=== PATIENT | male | born 1985 | race Caucasian/White ===

== ENCOUNTER 2023-08-26 11:55 | Emergency (ER) | payer OTHER, SELFPAY ==
[2023-08-26 12:02] VITALS: BP 152/106; PULSE 99; RESP 18; TEMP 36.8; O2SAT 97; BMI 40.6
--- NOTE | 2023-08-26 12:12 | CRLHL7_ITS ---
For Patients: As a result of the Cures Act, medical imaging exams and procedure reports are released immediately into your electronic medical record. You may view this report before your referring provider. If you have questions, please contact your health care provider. INDICATION: Left hand and forearm numbness. Now with facial numbness. TECHNIQUE: CT head without contrast. COMPARISON: None. FINDINGS: There is no mass effect or midline shift. No hydrocephalus. No CT evidence of acute hemorrhage or infarction. No abnormal extra-axial fluid collection. Bone windows show no acute calvarial fracture. Paranasal sinuses and orbits as imaged are unremarkable. Rightward deviation of the anterior nasal septum. IMPRESSION: No acute intracranial abnormality. Dictated by Marlon Sellers MD @ 08/26/2023 12:57:33 PM Please note that all CT scans at this facility use dose modulation, iterative reconstruction, and/or weight-based dosing when appropriate to reduce radiation dose to as low as reasonably achievable. Dictated by: Marlon Sellers MD @ 08/26/2023 12:57:41 (Electronically Signed)
--- NOTE | 2023-08-26 13:55 | ED_ITS ---
HPI - Neuro Symptoms/Deficit General Time Seen by Provider: 13:55 Date Seen: 08/26/23 Chief Complaint: Neuro Symptoms/Altered Deficit Stated Complaint: left side numbness Time Seen by Provider: 08/26/23 13:55 Source: patient Mode of arrival: ambulatory Limitations: no limitations History of Present Illness HPI Narrative: Giuseppe is a very pleasant 38-year-old gentleman who comes to the emergency room today with numbness of his left arm shoulders and left cheek. Giuseppe notes that he occasionally does wake up with numb numbness in both of his hands but he usually goes away after he gets up and moves around. Yesterday morning he noted however numbness in his left 4th and 5th fingers extending on to both the dorsum and palmar aspect of his hand and into the medial aspect of his forearm. He expected it to go away but it did not. Today he has had this continuing along with numbness in his upper shoulders and onto his left cheek. He denies any visual changes, chest pain, fever or chills. He notes no recent trauma any denies any neck pain. He has not had any heart palpitations or history of atrial fibrillation. He does smoke cigars but is otherwise healthy individual. He does go through the [place] for medical treatment and he is an [employer] . Patient has not noticed any unusual symptoms such as bowel or bladder changes or weakness in his lower extremities. He denies any past history of neck injury. He has not had a history of stroke. Related Data Home Medications ?Medication ?Instructions ?Recorded ?Confirmed hydrochlorothiazide 25 mg tablet 25 mg PO DAILY 08/26/23 08/26/23 losartan 50 mg tablet 50 mg PO DAILY 08/26/23 08/26/23 omeprazole 20 mg capsule,delayed 20 mg PO DAILY 08/26/23 08/26/23 release sumatriptan succinate 100 mg tablet 100 mg PO DIRECTED 08/26/23 08/26/23 Allergies Allergy/AdvReac Type Severity Reaction Status Date / Time No Known Drug Allergies Allergy Verified 02/28/22 18:21 Review of Systems Status of ROS: Reports: 10 or more systems reviewed and unremarkable except as noted in History and below Const: Denies: fever or chills Eyes: Denies: change in vision or blurry vision ENMT: Denies: neck pain, throat swelling or nasal congestion Cardio: Denies: chest pain or shortness of breath with exertion Resp: Denies: shortness of breath GI: Denies: abdominal pain, nausea or vomiting : Denies: painful urination Musculo: Denies: back pain or neck pain Neuro: Denies: headache Allergy/Immuno: Denies: throat swelling PFSH [facility] Social History Smoking Status: Never smoker How often do you have a drink containing alcohol: 2-4 times a month AUDIT-C Alcohol total score: 2 Non-prescribed substance use: denies use service: No Exam Narrative: Exam Narrative: Alert and oriented. No acute distress. Very pleasant well-spoken gentleman. EOM is full and pupils are equal round reactive. Eyebrow raise smile all intact. Sensation of face all intact and symmetrical. Neck is supple. No cervical tenderness with palpation down cervical spine. Range of motion is full. Spurling sign negative bilaterally. Upper baer shoulder strength intact. Upper extremity strength entirely intact. Sensation deficit noted on the patient's left 4th and 5th fingers. On the dorsum of the hand he has altered sensation to the 3rd metacarpal and on the Banks surface to the 4th metacarpal. However his strength and motor on upper extremities entirely intact he is walking normally his lower extremity DTRs are 1+ and there is no evidence of hyper reflexia. Abduction of hands bilaterally strong 5/5. Palpation over the ulnar nerve at the elbow does not increase patient's symptoms. Const: Vital Signs, click to edit/add: Vital Signs - 24 hr 08/26/23 12:02 Temperature 98.2 F Pulse Rate [Right Pulse Oximeter] 99 Respiratory Rate 18 Blood Pressure [Ri ght Upper Arm] 152/106 H Pulse Oximetry 97 Oxygen Delivery Me thod Room Air Documenting provider has reviewed patient's vital signs: yes Course Course ED Course: At this time differential diagnosis includes but is not limited to ulna are neuropathy, cervical radiculitis, CVA, anxiety, musculoskeletal spasm. Head CT has been done at this time. I would like to speak to Neurology as patient has symptoms of what I think is predominantly on ulna are neuropathy or neuritis and yet I cannot explain the shoulder her numbness or facial numbness. Facial numbness has largely resolved at this time. Symptoms are greater than 24 hours. I will be speaking to Neurology to see if there is any utility in his CTA or if MRI would be the better course of action. His blood pressure is elevated and we will need to recheck that. Unfortunately we have no beds in the ER and therefore we have found him a cot in the hallway. He is been very patient with us. Reevaluation(s) Reevaluation #1: Patient would like to wait in the waiting room as there is a line for MRI. He continues to be stable at this time. Consultations Consultation #1: Had pleasure of speaking with neurologist Dr. Renteria. Agrees that an MRI of the brain would be appropriate in this situation and also suggest adding cervical spine MRI which I have done. Patient is informed of this. Vital Signs Vital signs: Initial Vital Signs Temperature 98.2 F 08/26/23 12:02 Temperature Source Temporal Artery Scan 08/26/23 12:02 Pulse Rate 99 08/26/23 12:02 Respiratory Rate 18 08/26/23 12:02 Blood Pressure 152/106 H 08/26/23 12:02 Blood Pressure Mean 121 H 08/26/23 12:02 Blood Pressure Position Sitting 08/26/23 12:02 Pulse Oximetry 97 08/26/23 12:02 Oxygen Delivery Method Room Air 08/26/23 12:02 Vital Signs Temperature 98.2 F 08/26/23 12:02 Pulse Rate 99 08/26/23 12:02 Respiratory Rate 18 08/26/23 12:02 Blood Pressure 152/106 H 08/26/23 12:02 Pulse Oximetry 97 08/26/23 12:02 Oxygen Delivery Method Room Air 08/26/23 12:02 Temperature 98.2 F 08/26/23 12:02 Pulse Rate 99 08/26/23 12:02 Respiratory Rate 18 08/26/23 12:02 Blood Pressure 152/106 H 08/26/23 12:02 Pulse Oximetry 97 08/26/23 12:02 Oxygen Delivery Method Room Air 08/26/23 12:02 MDM - Neuro Symptoms/Deficit MDM Narrative Medical decision making narrative: 1. Subjective neurological complaints-at this time patient notes onset of left 4th and 5th finger numbness extending onto the hand and onto the forearm medial surface. Today he had this continue along with numbness in the upper shoulders as well as left cheek. Note onset of finger numbness yesterday morning so we are dealing with symptoms that have been occurring for greater than 24 hours. Facial symptoms are now resolved here in the emergency room. He I have spoken to Dr. Renteria Neurology in regards to this patient. Initially my opinion was this was likely an ulnar are radiculitis however, I cannot explain the bilateral shoulder and left facial numbness. Therefore I must consider stroke in the differential diagnosis. Patient had heart sounds with regular rate and rhythm. EKG pending but patient elected to leave AMA. Patient did have negative head CT. Neurologist then suggest MRI of the brain and cervical spine. Patient initially in agreement and was waiting in the waiting room. However, there was has significant stick census in the ER and the MRI was scheduled for 1900 hours and he elected not to wait. He did sign AMA. My advice to him was to take baby aspirin 81 mg daily and to follow up with his primary MD for further evaluation as well as blood pressure checks. Of course he should return to the ER if worsening symptoms occur. 2. Elevated blood pressure-patient has no chest pain visual changes headache or confusion. Initial plan was to let him sit and recheck blood pressure. However, he elects to leave AMA prior to his MRIs. 2. Disposition-as above. Patient signed AMA as he did not want to wait for MRI which was scheduled this evening. Medical Records Attestation: I reviewed the patient's medical records. Imaging Data CT scan - head: Attestation: I have reviewed the pertinent imaging results. Radiologist's impression: There is no mass effect or midline shift. No hydrocephalus. No CT evidence of acute hemorrhage or infarction. No abnormal extra-axial fluid collection. Bone windows show no acute calvarial fracture. Paranasal sinuses and orbits as imaged are unremarkable. Rightward deviation of the anterior nasal septum. IMPRESSION: No acute intracranial abnormality. Discharge Plan Discharge Patient Disposition: Left Against Medical Advice Prescriptions: No Action losartan 50 mg tablet 50 mg PO DAILY sumatriptan succinate 100 mg tablet 100 mg PO DIRECTED omeprazole 20 mg capsule,delayed release(DR/EC) 20 mg PO DAILY hydrochlorothiazide 25 mg tablet 25 mg PO DAILY Follow Up/Referrals: Venecia García MD [Staff Physician] - Stand Alone Forms: [employer] Info Instructions
--- OUTSIDE RECORDS SUMMARY | 2023-08-26 14:24 | XMS_ITS | Encounter Summary ---
Author Name Department [facility] Organization [facility] Address [address] [place] [address] Care Team Providers Care Credit Rating Checker Name Role Phone LIS GUERRA Primary Care Provider Unavailabl e Insurance Providers: All historical and current Section Date Range: From patient's date of to the date document was created. This section includes the names of all active insurance providers for the patient. Insurance Provider Type of Coverage Plan Name Start of Policy Coverage End of Policy Coverage Group Number Member ID Insurance Provider's Telephone Number Policy Hodges's Name Patient's Relationship to Policy Hodges [employer] PLAN W/HEALTH REIMBURSE MENT ARRANGEME NT Empow er HSA Natio nal Mar 04, 2014 [id number] FAVOURITE ,CHARITY PATIENT MED[employer] ([id number] [employer]) PRESCRIPT ION MEDIC A RX Mar 04, 2022 1MEDICA [id number] [phone] FAVOURITE ,CHARITY PATIENT [employer] ([employer]) PRESCRIPT ION MEDIC A RX Mar 04, 2021 1MEDICA [id number] FAVOURITE ,CHARITY PATIENT MEDICA POINT OF SERVICE [place] [facility] Mar 04, 2021 [id number] FAVOURITE ,CHARITY PATIENT MEDICA [facility] [facility] Mar 04, 2021 [id number] FAVOURITE ,CHARITY PATIENT [facility]ICA[facility] PREFERRED PROVIDER ORGANIZAT ION (PPO) [place] [facility] F Mar 04, 2022 [id number] [phone] FAVOURITE ,CHARITY PATIENT MEDIMPACT RX PRESCRIPT ION HP RX HSA Mar 04, 2014 [id number] CHARITY JUAREZ PATIENT Selected Encounter This section includes the information on record at [facility] for the Encounter. Date/Time Encounter Type Encounter Description Reason Pro vider Source May 21, 2023 02:42 PM Outpatient Encounter WE[facility]! PROG - IND IHE Encounter Template Text not used by [facility] Plan of Treatment: Future Appointments (+ 6 months) and Future Tests (+/- 45 days) The Plan of Treatment section includes future care activities for the patient from all [facility] treatmentfacilities. This section includes future appointments and future orders which are active, pending or scheduled. Future Appointments This section includes appointments that were scheduled to occur 6 months from the date of the Encounter, up to a maximum of 20 appointments. The data comes from all [facility] treatment facilities. Appointment Date/Time Appointment Type Appointme nt Facility Name Aug 14, 2023 03:00 PM AMBULATORY - MEDICINE [facility] Social History: Smoking Status (Most current) and Tobacco Use (All prior to encounter date) This section includes the most current, and the historical, smoking and tobacco- related health factors from the [facility] facility where the Encounter took place. Current Smoking Status This section includes the most current smoking, or tobacco-related health factor, from the [facility] facility where the Encounter took place. Date/Time Current Smoking Status Comment Yossi reid Feb 01, 2012 09:57 AM CURRENT TOBACCO USER [facility] Tobacco Use History This section includes a history of the smoking, or tobacco-related health factors, that were collected on or before the date of the Encounter. The data comes from the [facility] facility where the Encounter took place. Date/Time Smoking Status/Tobacco Use Comment Virgil palmer Dec 29, 2010 01:07 PM CURRENT TOBACCO USER [facility] Encounter Notes: All associated encounter notes This section contains the clinical notes associated to the Encounter. Date/Time Encounter Note(s) Provider Source May 21, 2023 02:42 PM REPORT OF CONTACT: LOCAL TITLE: APPOINTMENT SCHEDULING NOTE STANDARD TITLE: REPORT OF CONTACT DATE OF NOTE: MAY 21, 2023@14:42 ENTRY DATE: MAY 21, 2023@14:43:03 AUTHOR: MARLON BYRD COSIGNER: URGENCY: STATUS: COMPLETED C1-First call to [facility] (unsuccessful scheduling): Left Voicemail L1-Unable to schedule letter sent by mail to [facility]. Activity: 12/05/2022 13:46 New Order entered by MONICA CROWLEY (NURSE PRACTITCASSI) Order Text: Return to [facility] 2 79 on or around ( Apr 10, 2023 ) for a total of 1 appointment(s) Nature of Order: ELECTRONICALLY ENTERED Elec Signature: MONICA CROWLEY (NURSE PRACTITCASSI) on 12/05/2022 13:47 Place in [facility] [place] on 07/15/23 /todd/ MARLON BYRD Advanced Manager Corporate Communications Signed: 05/21/2023 14:43 MARLON BYRD [facility]
--- OUTSIDE RECORDS SUMMARY | 2023-08-26 14:24 | XMS_ITS | Continuity of Care Document ---
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 It does not include entries that were removed or entered in error. Problem Status Onset Date Problem Type Date of Resolution Comments Source Exposure to potentially hazardous substance ([facility] [id number]) Active 05/10/19 24 Condition May 10, 2023 Entered By: CISCO TRINH [facility]: [facility] Documentation Initiative [facility] Obstructive sleep apnea syndrome Active 03/04/19 10 Condition Jan 18, 2022 Entered By: LIS GUERRA Comment: plans to restart use CPAP [facility] corneal scar left eye Active Condition [facility] sleep disorders organic Active Condition DoD visit for: services physical separation Active Condition DoD tobacco use Active Condition DoD insomnia Active Condition DoD sinusitis Active Condition DoD pharyngitis Active Condition [facility] Orthopedic Aftercare For Healing Fracture Inactive Condition DoD fracture metacarpal bone(s) Active Condition DoD closed fracture metacarpal bone(s) right Active Condition [facility] visit for: routine eye exam Active Condition DoD astigmatism regular Active Condition DoD refractive error - hypermetropia Active Condition [facility] Patient Education Dietary Active Condition DoD congenital foot deformity - pes cavus Active Condition [facility] disorder of tonsil tonsillitis Active Condition DoD foot pain (soft tissue) Active Condition DoD callus Active Condition DoD corns Active Condition DoD visit for: ears / hearing exam Active Condition DoD visit for: services physical Active Condition DoD routine examination Inactive Condition [facility] Patient Education - Self-Examination Active Condition [facility] Preventive Medicine New Patient Evaluation Adult 18-39 Years Inactive Condition DoD Adult attention deficit hyperactivity disorder (SNOMED CT 285730458) Active Condition May 12, 2014 Entered By: MARLON ERNST Comment: on med in HS and college only [facility] Alcohol intake above recommended sensible limits Active Condition [facility] Allergic rhinitis Active Condition [facility] Body mass index 40+ - severely obese Active Condition May 12, 2014 Entered By: MARLON ERNST Comment: max 365# in 2013 [facility] Chronic diarrhea Active Condition [facility] Chronic post-traumatic stress disorder Active Condition [facility] collar bone fracture Active Condition Jan 10, 2010 Entered By: CHARITY MOCK Comment: [facility] Essential hypertension Active Condition Oct 10, 2021 Entered By: LIS GUERRA Comment: NEEDS VISIT BEFORE LOSARTAN REFILL [facility] Family social history Active Condition Jan 10, 2023 Entered By: LIS GUERRA Comment: Alcohol 1-2 beers once or twice a week in summer more on weekends. 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 [facility] ZairgeJan 18, 2022 Entered By: LIS GUERRA Comment: [employer]/[place] [place] 18, 2022 Entered By: LIS GUERRA Comment: Quit tobacco 2016 after smoking from age 14, 1 pack lasted 2 Weeks, NOW SMOKES OCCASIONAL CIGARSJan 18, 2022 Entered By: LIS GUERRA Comment: Mom(retired [place] steve commisioner) has had HTN, Dad in MVA when was youngNov 2021 Entered By: LIS GUERRA Comment: Sister is healthy(bank)No v 2022 Entered By: LIS GUERRA Comment: 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 Entered By: LIS GUERRA Comment: V[facility] in [facility]ase[facility] fracture forearm Active Condition Jan 10, 2010 Entered By: CHARITY MOCK Comment: left [facility] Fracture of metacarpal bone Active Condition Jun 05, 2014 Entered By: MARLON ERNST Comment: R Boxer's fracture 2008 [facility] GERD - Gastro-Esophageal Reflux Disease ([facility] [id number]) Active Condition Jun 22, 2022 Entered By: LIS GUERRA Comment: SCRIPT FOR OMEPRAZOLE RENEWED REQUESTED [facility] Headache Active Condition [facility] History of surgery Active Condition Jan 18, 2022 Entered By: LIS GUERRA Comment: s/p Tonsillectomy [facility] Hyperlipidemia (SCT [id number]) Active Condition [facility] Irritable bowel Active Condition [facility] metatarsal fracure Active Condition Jan 10, 2010 Entered By: CHARITY MOCK Comment: right # 5 digit [facility] OA - Osteoarthritis (SCT 831266863) Active Condition [facility] Other and unspecified Sleep Apnea Active Condition [facility] Diagnosis: ICD-10-CM Z68.41 Body mass index [BMI] 40.0-44.9, adult Active Diagnosis [facility] Diagnosis: ICD-10-CM E66.01 Morbid (severe) obesity due to excess calories Active Diagnosis [facility] Diagnosis: ICD-10-CM J10.1 Flu due to oth ident influenza virus w oth resp manifest Active Diagnosis [facility] Diagnosis: ICD-10-CM M54.50 Low back pain, unspecified Active Diagnosis [facility] Diagnosis: ICD-10-CM Z00.01 Encounter for general adult medical exam w abnormal findings Active Diagnosis [facility] Diagnosis: ICD-10-CM Z71.3 Dietary counseling and surveillance Active Diagnosis [facility] Diagnosis: ICD-10-CM E66.9 Obesity, unspecified Active Diagnosis [facility] Diagnosis: ICD-10-CM G43.809 Other migraine, not intractable, without status migrainosus Active Diagnosis [facility] Diagnosis: ICD-10-CM R51.9 Headache, unspecified Active Diagnosis [facility] Diagnosis: ICD-10-CM Z71.9 Counseling, unspecified Active Diagnosis [facility] Diagnosis: ICD-10-CM G89.29 Other chronic pain Active Diagnosis [facility] Medications Combined list of outpatient medications from Department of Defense and [facility] Affairs facilities.Medications provided include 1) outpatient medications from the last 15 months, and 2) patient-reported medications. Medication Details Route Status Patient Instructions Prescription Expires Prescription Number Last Dispense Date Ordering Provider Order Date Order Qty Source AMITRIPTYLI NE HCL 25MG TAB TAKE ONE TABLET BY MOUTH AT BEDTIME FOR PAIN AND MOOD ORAL DISCONT INUED 06/12/2023 [id number] BLANCA GUERRA 2022 30 [facility] Compounded Prilosec Capsule Conventiona l 20 mg Oral TAKE ONE CAPSULE BY MOUTH EVERY DAY FOR HEARTBUR N ON AN EMPTY STOMACH, AT LEAST 30 MINUTES PRIOR TO A MEAL FOR GERD Active 01/11/2024 [id number] 4 LIS GUERRA 2023 90 [facility] [facility] Compounded Prilosec Capsule Conventiona l 20 mg Oral TAKE ONE CAPSULE BY MOUTH EVERY DAY FOR HEARTBUR N ON AN EMPTY STOMACH, AT LEAST 30 MINUTES PRIOR TO A MEAL FOR GERD Active 01/11/2024 [id number] 3 LIS GUERRA 2022 90 [place] [facility] Compounded Prilosec Capsule Conventiona l 20 mg Oral TAKE ONE CAPSULE BY MOUTH EVERY DAY FOR HEARTBUR N ON AN EMPTY STOMACH, AT LEAST 30 MINUTES PRIOR TO A MEAL FOR GERD Discont inued 06/23/2023 [id number] 3 GUERRABLANCAHIPOLITO García 2022 90 [place] [facility] COZAAR (BRAND) 50 MG ORAL TAB TAKE ONE TABLET BY MOUTH EVERY DAY FOR BLOOD PRESSURE Active 01/11/2024 [id number] LIS GUERRA 2023 90 [place] [facility] COZAAR (BRAND) 50 MG ORAL TAB TAKE ONE TABLET BY MOUTH EVERY DAY FOR BLOOD PRESSURE Active 01/11/2024 [id number] 3 LIS GUERRA 2022 90 [place] [facility] COZAAR (BRAND) 50 MG ORAL TAB TAKE ONE TABLET BY MOUTH EVERY DAY FOR BLOOD PRESSURE Discont inued 01/19/2023 [id number] 3 LIS GUERRA Raquel 2022 90 [place] [facility] Hydrochloro thiazide (Oretic) Tablet 25 mg Oral TAKE ONE TABLET BY MOUTH EVERY MORNING FOR HIGH BLOOD PRESSURE Active 01/11/2024 [id number] 4 LIS GUERRA Raquel 2023 90 [place] [facility] Hydrochloro thiazide (Oretic) Tablet 25 mg Oral TAKE ONE TABLET BY MOUTH EVERY MORNING FOR HIGH BLOOD PRESSURE Discont inued 01/19/2023 [id number] 3 LIS GUERRA S 2022 90 Gracie don [facility] HYDROCHLORO THIAZIDE 25MG TAB TAKE ONE TABLET BY MOUTH EVERY MORNING FOR HIGH BLOOD PRESSURE ORAL ACTIVE 01/11/2024 [id number] 4 BLANCA GUERRA S 2022 90 [facility] HYDROCHLORO THIAZIDE 25MG TAB TAKE ONE TABLET BY MOUTH EVERY MORNING FOR HIGH BLOOD PRESSURE ORAL DISCONT INUED 01/19/2023 [id number] 3 BLANCA GUERRA S 2021 90 [facility] LOSARTAN 50MG TAB TAKE ONE TABLET BY MOUTH EVERY DAY FOR BLOOD PRESSURE ORAL ACTIVE 01/11/2024 [id number] 4 BLANCA GUERRA S 2022 90 [facility] LOSARTAN 50MG TAB TAKE ONE TABLET BY MOUTH EVERY DAY FOR BLOOD PRESSURE ORAL DISCONT INUED 01/19/2023 [id number] 3 BLANCA GUERRA S 2021 90 [facility] OMEPRAZOLE 20MG CAP,EC TAKE ONE CAPSULE BY MOUTH EVERY DAY FOR HEARTBUR N ON AN EMPTY STOMACH, AT LEAST 30 MINUTES PRIOR TO A MEAL FOR GERD ORAL ACTIVE 01/11/2024 [id number] 4 BLANCA GUERRA S 2022 90 [facility] OMEPRAZOLE 20MG CAP,EC TAKE ONE CAPSULE BY MOUTH EVERY DAY FOR HEARTBUR N ON AN EMPTY STOMACH, AT LEAST 30 MINUTES PRIOR TO A MEAL FOR GERD ORAL DISCONT INUED 06/23/2023 [id number] 3 BLANCA GUERRA S 2022 90 [facility] oseltamivir (U/D) 75 MG ORAL CAP TAKE ONE CAPSULE BY MOUTH TWICE A DAY FOR INFLUENZ A TAKE UNTIL ALL ARE GONE 04/21/2023 [id number] 4 KLARISSA DOMINGUEZ S 2023 10 Gracie [facility] OSELTAMIVIR PO4 75MG CAP TAKE ONE CAPSULE BY MOUTH TWICE A DAY FOR INFLUENZ A TAKE UNTIL ALL ARE GONE ORAL 04/21/2023 [id number] Echo DOMINGUEZ OI 2023 10 [place] [facility] Phentermine 15 MG / topiramate 92 MG Extended Release Capsule TAKE 1 CAPSULE BY MOUTH EVERY DAY FOR WEIGHT LOSS Active 08/29/2023 [id number] 4 MONICA SELBY 2023 30 [place] [facility] Phentermine 15 MG / topiramate 92 MG Extended Release Capsule TAKE 1 CAPSULE BY MOUTH EVERY DAY FOR WEIGHT LOSS Discont inued 02/08/2023 [id number] 3 MONICA SELBY 2022 30 [place] [facility] Phentermine 15 MG / topiramate 92 MG Extended Release Capsule TAKE 1 CAPSULE BY MOUTH EVERY DAY FOR WEIGHT LOSS 02/08/2023 [id number] 3 [facility]BY 20[facility] PHENTERMINE 15MG/TOPIRA MATE 92MG CAP,SA TAKE 1 CAPSULE BY MOUTH EVERY DAY FOR WEIGHT LOSS ORAL ACTIVE 08/29/2023 [id number] 4 MONICA CROWLEY 2022 30 [place] [facility]MG/TOPIRA MATE 92MG CAP,SA TAKE 1 CAPSULE BY MOUTH EVERY DAY FOR WEIGHT LOSS ORAL DISCONT INUED 02/08/2023 [id number] 3 MONICA CROWLEY 2022 30 [facility] PHENTERMINE 15MG/TOPIRA MATE 92MG CAP,SA TAKE 1 CAPSULE BY MOUTH EVERY DAY FOR WEIGHT LOSS ORAL DISCONT INUED 12/16/2022 [id number] 3 MONICA CROWLEY 2022 30 [place] [facility] POLYETHYLEN E GLYCOL 3350 PWDR,ORAL TAKE 17 GRAMS BY MOUTH EVERY DAY IRRITABL E BOWEL (MIX WITH 4 TO 6 OUNCES OF LIQUID AND DRINK) ORAL ACTIVE 01/11/2024 [id number] 3 BLANCA GUERRA 2022 510 [facility] SO-PEG 3350-BOWEL 2,TWO PART PREP--PO SO TAKE 17 GRAMS BY MOUTH EVERY DAY IRRITABL E BOWEL (MIX WITH 4 TO 6 OUNCES OF LIQUID AND DRINK) Active 01/11/2024 [id number] 3 LIS GUERRA S 2022 510 [facility] SUMAtriptan (U/D) 100 MG ORAL TAB TAKE ONE TABLET BY MOUTH ONCE NEEDED TO TREAT MIGRAINE - MAY REPEAT ONCE AFTER TWO HOURS. MAX 200 MG/24 HOURS. 08/10/2023 [id number] 4 JOSE EVANS 2023 27 [facility] SUMAtriptan (U/D) 100 MG ORAL TAB TAKE ONE TABLET BY MOUTH ONCE NEEDED TO TREAT MIGRAINE - MAY REPEAT ONCE AFTER TWO HOURS. MAX 200 MG/24 HOURS. 08/10/2023 [id number] 3 JOSE EVANS 2022 27 [facility] SUMATRIPTAN SUCCINATE 100MG TAB TAKE ONE TABLET BY MOUTH ONCE NEEDED TO TREAT MIGRAINE - MAY REPEAT ONCE AFTER TWO HOURS. MAX 200 MG/24 HOURS. ORAL 08/10/2023 [id number] 4 Peterson EVANS E 2022 27 [facility] Allergies, Adverse Reactions, Alerts Combined list of allergies from Department of Defense and Veterans Affairs facilities. It does not include entries that were removed or entered in error. Substance Category Reaction Severity Reaction type Status Date Reported Comments Source LISINOPRIL Propensity to adverse reactions to drug (finding) Cough active 5 [facility] No Known Allergies Drug allergy (disorder) active 8 [facility] ZOLPIDEM Propensity to adverse reactions to drug (finding) Sleep walking disorder active 1 [facility] Immunizations Combined list of available immunizations from the Department of Defense and Veterans Affairs facilities. 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 Status Comments Source HEP B, ADULT 2022 POPLIN,REY D RIGHT DELTO ID [id number] 43 complet ed [facility] INFLUENZA, INJECTABLE, QUADRIVALENT, PRESERVATIVE FREE 2022 POPLIN,REY D LEFT DELTO ID [id number] A 150 complet ed [facility] PNEUMOCOCCAL CONJUGATE PCV20, POLYSACCHARID E [id number] CONJUGATE, ADJUVANT, PF 2022 REY JAUREGUI LEFT DELTO ID [id number] 216 complet ed [facility] COVID-19 (MODERNA), MRNA, LNP-S, PF, 100 MCG/0.5ML DOSE OR 50 MCG/0.25ML DOSE 3 2021 207 complet ed [facility] COVID-19 (MODERNA), MRNA, LNP-S, PF, 100 MCG/0.5 ML DOSE 2 2020 207 complet ed [facility] COVID-19 (MODERNA), MRNA, LNP-S, PF, 100 MCG/0.5 ML DOSE 1 2020 207 complet ed [facility] TD (ADULT), 2 LF TETANUS TOXOID, PRESERVATIVE FREE, ADSORBED 2017 09 complet ed [facility] lot:[id number] exp: 12-25-19 [facility] HEP B, ADULT 2016 43 complet ed [facility] HEP B, ADULT 2016 43 complet ed [facility] INFLUENZA, UNSPECIFIED FORMULATION 2010 88 complet ed [facility] varicella virus vaccine 1 2009 UNK 21 Unknown (UNK) Not Given varicella virus vaccine [facility] Novel influenza-H1N 1-09, injectable 1 2008 [id number] 127 Marcandi Kalyan. (NOV) complet ed Novel influenza -H7K9-23, injectabl e [facility] anthrax vaccine 7 2008 [id number] 24 Unknown (UNK) comple t ed anthrax vaccine DoD influenza virus vaccine, split virus (incl. purified surface antigen)-reti red CODE 1 2008 [id number] 15 Unknown (UNK) comple t ed influenza virus vaccine, split virus (incl. purified surface antigen)- retired CODE DoD anthrax vaccine 6 2008 [id number] Marlyn (BP) complet ed anthrax vaccine DoD typhoid Vi capsular polysaccharid e vaccine 1 2008 [id number] 101 Unknown (UNK) comple t ed typhoid Vi capsular polysacch aride vaccine DoD TD(ADULT) UNSPECIFIED FORMULATION 2008 139 complet ed within the last 10 years [facility] [place] [facility] [place] [facility] TDAP 2008 115 complet ed [place] [facility] anthrax vaccine 5 2007 UNK 24 Marlyn (BP) complet ed anthrax vaccine DoD influenza virus vaccine, live, attenuated, for intranasal use 1 2007 [id number] [employer] (MED) complet ed influenza virus vaccine, live, attenuate d, for intranasa l use DoD anthrax vaccine 4 2006 UNK 24 Unknown (UNK) comple t ed anthrax vaccine DoD influenza virus vaccine, split virus (incl. purified surface antigen)-reti red CODE 1 2006 UNK 15 Unknown (UNK) comple t ed influenza virus vaccine, split virus (incl. purified surface antigen)- retired CODE DoD anthrax vaccine 3 2006 [id number] 24 [employer] [place] (MIP) complet ed anthrax vaccine DoD anthrax vaccine 2 2006 [id number] 24 Unknown (UNK) comple t ed anthrax vaccine DoD anthrax vaccine 1 2006 [id number] 24 Unknown (UNK) comple t ed anthrax vaccine DoD vaccinia (smallpox) vaccine 1 2005 [id number] Lexa (WAL) complet ed vaccinia (smallpox ) vaccine DoD typhoid Vi capsular polysaccharid e vaccine 1 2005 [id number] Sanofi Pasteur (PMC) complet ed typhoid Vi capsular polysacch aride vaccine DoD influenza virus vaccine, live, attenuated, for intranasal use 1 2005 [id number] 111 [employer] (MED) complet ed influenza virus vaccine, live, attenuate d, for intranasa l use DoD hepatitis B vaccine, adult dosage 4 2005 [id number] 43 Unknown (UNK) complet ed hepatitis B vaccine, adult dosage DoD hepatitis A vaccine, adult dosage 4 2005 [id number] 52 [facility] hepatitis A vaccine, adult dosage DoD tetanus and diphtheria toxoids, adsorbed, preservative free, for adult use (2 Lf of tetanus toxoid and 2 Lf of diphtheria toxoid) 1 2005 [id number] Unknown (UNK) comple t ed tetanus and diphtheri a toxoids, adsorbed, preservat lemuel free, for adult use (2 Lf of tetanus toxoid and 2 Lf of diphtheri a toxoid) DoD hepatitis B vaccine, adult dosage 3 2005 [id number] 43 Unknown (UNK) complet ed hepatitis B vaccine, adult dosage DoD hepatitis A vaccine, adult dosage 3 2005 [id number] 52 Unknown (UNK) complet ed hepatitis A vaccine, adult dosage DoD influenza virus vaccine, live, attenuated, for intranasal use 1 2004 UNK 111 Unknown (UNK) comple t ed influenza virus vaccine, live, attenuate d, for intranasa l use DoD hepatitis A and hepatitis B vaccine 2 2004 UNK 104 Unknown (UNK) comple t ed hepatitis A and hepatitis B vaccine DoD measles, mumps and rubella virus vaccine 1 2004 UNK 03 Unknown (UNK) comple t ed measles, mumps and rubella virus vaccine DoD tetanus and diphtheria toxoids, adsorbed, preservative free, for adult use (2 Lf of tetanus toxoid and 2 Lf of diphtheria toxoid) 1 2004 UNK 09 Unknown (UNK) comple t ed tetanus and diphtheri a toxoids, adsorbed, preservat lemuel free, for adult use (2 Lf of tetanus toxoid and 2 Lf of diphtheri a toxoid) DoD poliovirus vaccine, inactivated 1 2004 UNK 10 Unknown (UNK) comple t ed polioviru s vaccine, inactivat ed DoD meningococcal polysaccharid e vaccine (MPSV4) 1 2004 UNK 32 Unknown (UNK) comple t ed meningoco ccal polysacch aride vaccine (MPSV4) DoD hepatitis A and hepatitis B vaccine 1 2004 UNK 104 Unknown (UNK) comple t ed hepatitis A and hepatitis B vaccine DoD Results Combined list of recent chemistry, hematology and other laboratory results from Department of Defense and Veterans Affairs, ranging from 15 months to all on record, depending upon the facility. Order Name Results Value Reference Range Date Interpretation Specimen Comments Source ALT/SGPT ALANINE AMINOTRANSF ERASE [ENZYMATIC ACTIVITY/VO LUME] IN SERUM OR PLASMA 30 U/L <55 - 55 01/10 Specimen Type: PLASMA No comment entered. Ordering Provider: LIS GUERRA Report Released Date/Time: Jan 18, 2022 11:11 AM Reporting Lab: [facility] [id number] Performing Lab: [facility] [address] [facility] AST/SGOT ASPARTATE AMINOTRANSF ERASE [ENZYMATIC ACTIVITY/VO LUME] IN SERUM OR PLASMA 21 U/L <34 - 34 01/10 Specimen Type: PLASMA No comment entered. Ordering Provider: LIS GUERRA Report Released Date/Time: Jan 18, 2022 11:11 AM Reporting Lab: [facility] [id number] Performing Lab: [facility] [address] [facility] BASIC METABOLIC PANEL+MG CREATININE [MASS/VOLUM E] IN SERUM OR PLASMA 1.1 mg/dL 0.7 - 1.2 01/10 Specimen Type: PLASMA No comment entered. Ordering Provider: LIS GUERRA Report Released Date/Time: Jan 18, 2022 11:11 AM Reporting Lab: [facility] [id number] Performing Lab: [facility] [address] [facility] BASIC METABOLIC PANEL+MG UREA NITROGEN [MASS/VOLUM E] IN SERUM OR PLASMA 19 mg/dL 8 - 26 01/10 Specimen Type: PLASMA No comment entered. Ordering Provider: LIS GUERRA Report Released Date/Time: Jan 18, 2022 11:11 AM Reporting Lab: [facility] [phone] Performing Lab: [facility] [address] [facility] BASIC METABOLIC PANEL+MG GLUCOSE [MASS/VOLUM E] IN SERUM OR PLASMA 89 mg/dL 70 - 100 01/10 Specimen Type: PLASMA No comment entered. Ordering Provider: LIS GUERRA Report Released Date/Time: Jan 18, 2022 11:11 AM Reporting Lab: [facility] [phone] Performing Lab: [facility] [address] [facility] BASIC METABOLIC PANEL+MG SODIUM [MOLES/VOLU ME] IN SERUM OR PLASMA 138 mmol/L 136 - 145 01/10 Specimen Type: PLASMA No comment entered. Ordering Provider: LIS GUERRA Report Released Date/Time: Jan 18, 2022 11:11 AM Reporting Lab: [facility] [phone] Performing Lab: [facility] [address] [facility] BASIC METABOLIC PANEL+MG POTASSIUM [MOLES/VOLU ME] IN SERUM OR PLASMA 3.7 mmol/L 3.5 - 5.1 01/10 Specimen Type: PLASMA No comment entered. Ordering Provider: LIS GUERRA Report Released Date/Time: Jan 18, 2022 11:11 AM Reporting Lab: [facility] [phone] Performing Lab: [facility] [address] [facility] BASIC METABOLIC PANEL+MG CHLORIDE [MOLES/VOLU ME] IN SERUM OR PLASMA 105 mmol/L 98 - 107 01/10 Specimen Type: PLASMA No comment entered. Ordering Provider: LIS GUERRA Report Released Date/Time: Jan 18, 2022 11:11 AM Reporting Lab: [facility] [phone] Performing Lab: [facility] [address] [facility] BASIC METABOLIC PANEL+MG CARBON DIOXIDE, TOTAL [MOLES/VOLU ME] IN SERUM OR PLASMA 23 mmol/L 22 - 29 01/10 Specimen Type: PLASMA No comment entered. Ordering Provider: LIS GUERRA Report Released Date/Time: Jan 18, 2022 11:11 AM Reporting Lab: [facility] [phone] Performing Lab: [facility] [address] [facility] BASIC METABOLIC PANEL+MG CALCIUM [MASS/VOLUM E] IN SERUM OR PLASMA 9.3 mg/dL 8.4 - 10.2 01/10 Specimen Type: PLASMA No comment entered. Ordering Provider: LIS GUERRA Report Released Date/Time: Jan 18, 2022 11:11 AM Reporting Lab: [facility] [address] Performing Lab: [facility] [address] [facility] BASIC METABOLIC PANEL+MG MAGNESIUM [MASS/VOLUM E] IN SERUM OR PLASMA 2.1 mg/dL 1.6 - 2.6 01/10 Specimen Type: PLASMA No comment entered. Ordering Provider: LIS GUERRA Report Released Date/Time: Jan 18, 2022 11:11 AM Reporting Lab: [facility] [address] Performing Lab: [facility] [address] [facility] BASIC METABOLIC PANEL+MG ANION GAP IN SERUM OR PLASMA 10 mmol/L 5 - 15 01/10 Specimen Type: PLASMA No comment entered. Ordering Provider: LIS GUERRA Report Released Date/Time: Jan 18, 2022 11:11 AM Reporting Lab: [facility] [address] Performing Lab: [facility] [address] [facility] BASIC METABOLIC PANEL+MG GLOMERULAR FILTRATION RATE/1.73 SQ M.PREDICTED [VOLUME RATE/AREA] IN SERUM, PLASMA OR BLOOD BY CREATININE- BASED FORMULA (CKD-EPI 2020) 88 60 01/10 Specimen Type: PLASMA No comment entered. Ordering Provider: LIS GUERRA Report Released Date/Time: Jan 18, 2022 11:11 AM Reporting Lab: [facility] [address] Performing Lab: [facility] [address] [facility] CBC & DIFF LEUKOCYTES [#/VOLUME] IN BLOOD BY AUTOMATED COUNT 8.21 10*3/u L 4.0 - 11.0 01/10 Specimen Type: BLOOD Comment: Automated Differentia l Performed Ordering Provider: LIS GUERRA Report Released Date/Time: Jan 18, 2022 11:11 AM Reporting Lab: [facility] [address] Performing Lab: [facility] [address] [facility] CBC & DIFF ERYTHROCYTE S [#/VOLUME] IN BLOOD BY AUTOMATED COUNT 5.13 10*6/u L 4.6 - 6.2 01/10 Specimen Type: BLOOD Comment: Automated Differentia l Performed Ordering Provider: LIS GUERRA Report Released Date/Time: Jan 18, 2022 11:11 AM Reporting Lab: [facility] [phone] Performing Lab: [facility] [address] [facility] CBC & DIFF HEMOGLOBIN [MASS/VOLUM E] IN BLOOD 15.8 g/dL 13.5 - 17.9 01/10 Specimen Type: BLOOD Comment: Automated Differentia l Performed Ordering Provider: LIS GUERRA Report Released Date/Time: Jan 18, 2022 11:11 AM Reporting Lab: [facility] [address] Performing Lab: [facility] [address] [facility] CBC & DIFF HEMATOCRIT [VOLUME FRACTION] OF BLOOD BY AUTOMATED COUNT 45.5 41 - 54 01/10 Specimen Type: BLOOD Comment: Automated Differentia l Performed Ordering Provider: LIS GUERRA Report Released Date/Time: Jan 18, 2022 11:11 AM Reporting Lab: [facility] [address] Performing Lab: [facility] [address] [facility] CBC & DIFF MCV [ENTITIC VOLUME] BY AUTOMATED COUNT 88.7 fL 80 - 100 01/10 Specimen Type: BLOOD Comment: Automated Differentia l Performed Ordering Provider: LIS GUERRA Report Released Date/Time: Jan 18, 2022 11:11 AM Reporting Lab: [facility] [address] Performing Lab: [facility] [address] [facility] CBC & DIFF MCH [ENTITIC MASS] BY AUTOMATED COUNT 30.8 pg 27 - 33 01/10 Specimen Type: BLOOD Comment: Automated Differentia l Performed Ordering Provider: LIS GUERRA Report Released Date/Time: Jan 18, 2022 11:11 AM Reporting Lab: [facility] [address] Performing Lab: [facility] [address] [facility] CBC & DIFF MCHC [MASS/VOLUM E] BY AUTOMATED COUNT 34.7 g/dL 32.0 - 37.5 01/10 Specimen Type: BLOOD Comment: Automated Differentia l Performed Ordering Provider: LIS GUERRA Report Released Date/Time: Jan 18, 2022 11:11 AM Reporting Lab: [facility] [address] Performing Lab: [facility] [address] [facility] CBC & DIFF PLATELETS [#/VOLUME] IN BLOOD BY AUTOMATED COUNT 311 10*3/u L 150 - 400 01/10 Specimen Type: BLOOD Comment: Automated Differentia l Performed Ordering Provider: LIS GUERRA Report Released Date/Time: Jan 18, 2022 11:11 AM Reporting Lab: [facility] [address] Performing Lab: [facility] [address] [facility] CBC & DIFF PLATELET MEAN VOLUME [ENTITIC VOLUME] IN BLOOD BY AUTOMATED COUNT 9.5 fL 7.4 - 10.4 01/10 Specimen Type: BLOOD Comment: Automated Differentia l Performed Ordering Provider: LIS GUERRA Report Released Date/Time: Jan 18, 2022 11:11 AM Reporting Lab: [facility] [address] Performing Lab: [facility] [address] [facility] CBC & DIFF NEUTROPHILS /100 LEUKOCYTES IN BLOOD BY MANUAL COUNT 59.5 40.0 - 80.0 01/10 Specimen Type: BLOOD Comment: Automated Differentia l Performed Ordering Provider: LIS GUERRA Report Released Date/Time: Jan 18, 2022 11:11 AM Reporting Lab: [facility] [address] Performing Lab: [facility] [address] [facility] CBC & DIFF LYMPHOCYTES /100 LEUKOCYTES IN BLOOD BY MANUAL COUNT 31.4 15.0 - 45.0 01/10 Specimen Type: BLOOD Comment: Automated Differentia l Performed Ordering Provider: LIS GUERRA Report Released Date/Time: Jan 18, 2022 11:11 AM Reporting Lab: [facility] [address] Performing Lab: [facility] [address] [facility] CBC & DIFF MONOCYTES/1 00 LEUKOCYTES IN BLOOD BY AUTOMATED COUNT 7.3 2.0 - 12.0 01/10 Specimen Type: BLOOD Comment: Automated Differentia l Performed Ordering Provider: LIS GUERRA Report Released Date/Time: Jan 18, 2022 11:11 AM Reporting Lab: [facility] [address] Performing Lab: [facility] [address] [facility] CBC & DIFF EOSINOPHILS /100 LEUKOCYTES IN BLOOD BY AUTOMATED COUNT 0.7 0.0 - 6.0 01/10 Specimen Type: BLOOD Comment: Automated Differentia l Performed Ordering Provider: LIS GUERRA Report Released Date/Time: Jan 18, 2022 11:11 AM Reporting Lab: [facility] [address] Performing Lab: [facility] [address] [facility] CBC & DIFF BASOPHILS/1 00 LEUKOCYTES IN BLOOD BY MANUAL COUNT 0.7 0.0 - 2.0 01/10 Specimen Type: BLOOD Comment: Automated Differentia l Performed Ordering Provider: LIS GUERRA Report Released Date/Time: Jan 18, 2022 11:11 AM Reporting Lab: [facility] [address] Performing Lab: [facility] [address] [facility] CBC & DIFF ERYTHROCYTE DISTRIBUTIO N WIDTH [RATIO] BY AUTOMATED COUNT 12.1 11.5 - 14.5 01/10 Specimen Type: BLOOD Comment: Automated Differentia l Performed Ordering Provider: LIS GUERRA Report Released Date/Time: Jan 18, 2022 11:11 AM Reporting Lab: [facility] [address] Performing Lab: [facility] [address] [facility] CBC & DIFF LYMPHOCYTES [#/VOLUME] IN BLOOD BY AUTOMATED COUNT 2.58 10*3/u L 1.0 - 4.0 01/10 Specimen Type: BLOOD Comment: Automated Differentia l Performed Ordering Provider: LIS GUERRA Report Released Date/Time: Jan 18, 2022 11:11 AM Reporting Lab: [facility] [address] Performing Lab: [facility] [address] [facility] CBC & DIFF MONOCYTES [#/VOLUME] IN BLOOD BY AUTOMATED COUNT 0.60 10*3/u L 0.1 - 1.0 01/10 Specimen Type: BLOOD Comment: Automated Differentia l Performed Ordering Provider: LIS GUERRA Report Released Date/Time: Jan 18, 2022 11:11 AM Reporting Lab: [facility] [address] Performing Lab: [facility] [address] [facility] CBC & DIFF NEUTROPHILS [#/VOLUME] IN BLOOD BY AUTOMATED COUNT 4.88 10*3/u L 2.0 - 7.7 01/10 Specimen Type: BLOOD Comment: Automated Differentia l Performed Ordering Provider: LIS GUERRA Report Released Date/Time: Jan 18, 2022 11:11 AM Reporting Lab: [facility] [address] Performing Lab: [facility] [address] [facility] CBC & DIFF EOSINOPHILS [#/VOLUME] IN BLOOD BY AUTOMATED COUNT 0.06 10*3/u L 0 - 0.5 01/10 Specimen Type: BLOOD Comment: Automated Differentia l Performed Ordering Provider: LIS GUERRA Report Released Date/Time: Jan 18, 2022 11:11 AM Reporting Lab: [facility] [address] Performing Lab: [facility] [address] [facility] CBC & DIFF BASOPHILS [#/VOLUME] IN BLOOD BY AUTOMATED COUNT 0.06 10*3/u L 0 - 0.2 01/10 Specimen Type: BLOOD Comment: Automated Differentia l Performed Ordering Provider: LIS GUERRA Report Released Date/Time: Jan 18, 2022 11:11 AM Reporting Lab: [facility] [address] Performing Lab: [facility] [address] [facility] CBC & DIFF IG(META,MYE LO,PRO) 0.4 01/10 Specimen Type: BLOOD Comment: Automated Differentia l Performed Ordering Provider: LIS GUERRA Report Released Date/Time: Jan 18, 2022 11:11 AM Reporting Lab: [facility] [address] Performing Lab: [facility] [address] [facility] CBC & DIFF IMMATURE GRANULOCYTE S [PRESENCE] IN BLOOD BY AUTOMATED COUNT 0.03 10*3/u L 0 - 0.1 01/10 Specimen Type: BLOOD Comment: Automated Differentia l Performed Ordering Provider: LIS GUERRA Report Released Date/Time: Jan 18, 2022 11:11 AM Reporting Lab: [facility] [address] Performing Lab: [facility] [address] [facility] HEMOGLOBI N A1C HEMOGLOBIN A1C/HEMOGLO BIN.TOTAL IN BLOOD 5.1 4.0 - 6.0 01/10 Specimen Type: BLOOD Comment: Values obtained from A1C measurement s can vary. For typical A1C assays, a reported value of 7.0 could actually be between 6.7 and 7.3 if measured by a reference method. A reported value of 9.0 could actually be between 8.7 and 9.3. Ref: http://www. ngsp.org/[place] Pdata.asp Ordering Provider: LIS GUERRA Report Released Date/Time: Jan 18, 2022 11:11 AM Reporting Lab: [facility] [address] Performing Lab: [facility] [address] [facility] IRON GROUP IRON [MASS/VOLUM E] IN SERUM OR PLASMA 153 ug/dL 65 - 175 01/10 Specimen Type: PLASMA No comment entered. Ordering Provider: LIS GUERRA Report Released Date/Time: Jan 18, 2022 11:11 AM Reporting Lab: [facility] [address] Performing Lab: [facility] [address] [facility] IRON GROUP IRON BINDING CAPACITY [MASS/VOLUM E] IN SERUM OR PLASMA 341 ug/dL 250 - 425 01/10 Specimen Type: PLASMA No comment entered. Ordering Provider: LIS GUERRA Report Released Date/Time: Jan 18, 2022 11:11 AM Reporting Lab: [facility] [address] Performing Lab: [facility] [address] [facility] IRON GROUP FERRITIN [MASS/VOLUM E] IN SERUM OR PLASMA 524.5 ng/mL 21.8 - 274.7 01/10 H Specimen Type: PLASMA No comment entered. Ordering Provider: LIS GUERRA Report Released Date/Time: Jan 18, 2022 11:11 AM Reporting Lab: [facility] [address] Performing Lab: [facility] [address] [facility] IRON GROUP IRON SATURATION 45 20 - 50 01/10 Specimen Type: PLASMA No comment entered. Ordering Provider: LIS GUERRA Report Released Date/Time: Jan 18, 2022 11:11 AM Reporting Lab: [facility] [address] Performing Lab: [facility] [address] [facility] IRON GROUP TRANSFERRIN [MASS/VOLUM E] IN SERUM OR PLASMA 273 mg/dL 163 - 382 01/10 Specimen Type: PLASMA No comment entered. Ordering Provider: LIS GUERRA Report Released Date/Time: Jan 18, 2022 11:11 AM Reporting Lab: [facility] [address] Performing Lab: [facility] [address] [facility] LIPID PANEL,NON -FASTING CHOLESTEROL [MASS/VOLUM E] IN SERUM OR PLASMA 225 mg/dL <199 - 199 01/10 H Specimen Type: PLASMA No comment entered. Ordering Provider: LIS GUERRA Report Released Date/Time: Jan 18, 2022 11:11 AM Reporting Lab: [facility] [address] Performing Lab: [facility] [address] [facility] LIPID PANEL,NON -FASTING CHOLESTEROL IN HDL [MASS/VOLUM E] IN SERUM OR PLASMA 42 mg/dL 40 01/10 Specimen Type: PLASMA No comment entered. Ordering Provider: LIS GUERRA Report Released Date/Time: Jan 18, 2022 11:11 AM Reporting Lab: [facility] [address] Performing Lab: [facility] [address] [facility] LIPID PANEL,NON -FASTING CHOLESTEROL IN LDL [MASS/VOLUM E] IN SERUM OR PLASMA BY CALCULATION 145 mg/dL <99 - 99 01/10 H Specimen Type: PLASMA No comment entered. Ordering Provider: LIS GUERRA Report Released Date/Time: Jan 18, 2022 11:11 AM Reporting Lab: [facility] [address] Performing Lab: [facility] [address] [facility] LIPID PANEL,NON -FASTING CHOLESTEROL IN VLDL [MASS/VOLUM E] IN SERUM OR PLASMA BY CALCULATION 38 mg/dL <29 - 29 01/10 H Specimen Type: PLASMA No comment entered. Ordering Provider: LIS GUERRA Report Released Date/Time: Jan 18, 2022 11:11 AM Reporting Lab: [facility] [address] Performing Lab: [facility] [address] [facility] LIPID PANEL,NON -FASTING CHOLESTEROL NON HDL [MASS/VOLUM E] IN SERUM OR PLASMA 183 mg/dL <129 - 129 01/10 H Specimen Type: PLASMA No comment entered. Ordering Provider: LIS GUERRA Report Released Date/Time: Jan 18, 2022 11:11 AM Reporting Lab: [facility] [address] Performing Lab: [facility] [address] [facility] LIPID PANEL,NON -FASTING TRIGLYCERID E [MASS/VOLUM E] IN SERUM OR PLASMA 192 mg/dL <149 - 149 01/10 H Specimen Type: PLASMA No comment entered. Ordering Provider: LIS GUERRA Report Released Date/Time: Jan 18, 2022 11:11 AM Reporting Lab: [facility] [address] Performing Lab: [facility] [address] [facility] TSH W/REFLEX TO FREE T4 THYROTROPIN [UNITS/VOLU ME] IN SERUM OR PLASMA 1.82 u[IU]/ mL 0.35 - 4.94 01/10 Specimen Type: PLASMA No comment entered. Ordering Provider: LIS GUERRA Report Released Date/Time: Jan 18, 2022 11:11 AM Reporting Lab: [facility] [address] Performing Lab: [facility] [address] [facility] URIC ACID URATE [MASS/VOLUM E] IN SERUM OR PLASMA 6.0 mg/dL 3.5 - 7.2 01/10 Specimen Type: PLASMA No comment entered. Ordering Provider: LIS GUERRA Report Released Date/Time: Jan 18, 2022 11:11 AM Reporting Lab: [facility] [address] Performing Lab: [facility] [address] [facility] MICROALBU MIN/CREAT ININE RATIO URINE CREATININE [MASS/VOLUM E] IN URINE 118.8 mg/dL 58.0 - 161.0 01/10 Specimen Type: URINE No comment entered. Ordering Provider: LIS GUERRA Report Released Date/Time: Jan 10, 2023 02:40 PM Reporting Lab: [facility] [address] Performing Lab: [facility] [address] [facility] MICROALBU MIN/CREAT ININE RATIO URINE MICROALBUMI N/CREATININ E [MASS RATIO] IN URINE 5.1 mg/g{c reat} <29.9 - 29.9 01/10 Specimen Type: URINE No comment entered. Ordering Provider: LIS GUERRA Report Released Date/Time: Jan 10, 2023 02:40 PM Reporting Lab: [facility] [address] Performing Lab: [facility] [address] [facility] MICROALBU MIN/CREAT ININE RATIO URINE MICROALBUMI N [MASS/VOLUM E] IN URINE 6.1 mg/L <29.9 - 29.9 01/10 Specimen Type: URINE No comment entered. Ordering Provider: LIS GUERRA Report Released Date/Time: Jan 10, 2023 02:40 PM Reporting Lab: [facility] [address] Performing Lab: [facility] [address] [facility] Vital Signs Combined list of inpatient and outpatient Vital Signs from Department of Defense and Veterans Affairs, ranging from 12 months to all on record, depending upon the facility. Vital Sign Value Date Comments Source Encounters Combined list of: 1) Encounters from Department of Veterans Affairs facilities going back up to thelast 18 months. 2) Encounters from the Department of Defense facilities going back up to 280 months. Location Location Details Encounter Type Encounter Number Reason For Visit Attending Provider ADM Date DC Date Status Disposition Source [facility]) OUTPATIENT [id number] RODRIGUE Dodson 03/09 Released w/o Limitations [facility]) [facility]) OUTPATIENT [id number] SELF/CA RE CHELE RAI 03/13 Released w/o Limitations [facility] Theater Facility OUTPATIENT [id number] 12/04 Released w/o Limitations Theater Facilit y [facility]) OUTPATIENT [id number] KJ Cantu 02/11 Released w/o Limitations [facility](He aring Conserv ation [facility]) [facility](Immi gration Phys Exam) OUTPATIENT [id number] scales on feet JIMBO JIMENEZ 05/12 Released with Work/Duty Limitations [facility](Im migrati on Phys Exam) [facility](Podi atry) OUTPATIENT [id number] CHARITY PETERS 05/14 Released w/o Limitations [facility](Po diatry) [facility](Brac e Shop) OUTPATIENT [id number] 1st steps MADELIN SOTO 05/14 Released w/o Limitations [facility](Br tai Shop) [facility](Immi gration Phys Exam) OUTPATIENT [id number] swollen sore throat JIMBO JIMENEZ 06/18 Sick at Home/Quarter s [facility](Im migrati on Phys Exam) [facility](Immi gration Phys Exam) OUTPATIENT [id number] BARBARA JIMBO L 10/05 Released w/o Limitations [facility](Im migrati on Phys Exam) [facility](Podi atry) OUTPATIENT [id number] MARTHA BIRCH 11/12 Released w/o Limitations [facility](Po diatry) [facility](Nutr ition Care) OUTPATIENT [id number] BOLA FIGUEROA 12/09 Released w/o Limitations [facility](Nu trition Care) [facility](Opto metry [facility]) OUTPATIENT [id number] EYE EXAM ALLYSON GUILLORY 02/11 Released w/o Limitations [facility](Op tometry [facility]) [facility](Hear ing Conservat ion [facility]) OUTPATIENT [id number] JESSIE Caldwell 02/16 Released w/o Limitations [facility](He aring Conserv ation [facility]) [facility](Orth opedics) OUTPATIENT [id number] walk in from ER As per GISELLE Mckeon 04/14 Sick at Home/Quarter s [facility](Or thopedi cs) [facility](Brac e Shop) OUTPATIENT [id number] RT sa splint MADELIN SOTO 04/14 Released w/o Limitations [facility](Br tai Shop) [facility](Orth opedics) OUTPATIENT [id number] walk in, Right hand GISELLE ESPINOZA 04/15 Released with Work/Duty Limitations [facility](Or thopedi cs) [facility](Orth opedics) OUTPATIENT [id number] f/u on right hand GISELLE ESPINOZA 04/22 Released w/o Limitations [facility](Or thopedi cs) [facility](Brac e Shop) OUTPATIENT [id number] RT sac MADELIN SOTO 04/26 Released w/o Limitations [facility](Br tai Shop) [facility](Immi gration Phys Exam) OUTPATIENT [id number] swollen lymph nodes NII RODRIGUEZ 04/29 Sick at Home/Quarter s [facility](Im migrati on Phys Exam) [facility](Orth opedics) OUTPATIENT [id number] f/u on RT hand NEEL CHURCH 05/13 Released w/o Limitations [facility](Or thopedi cs) [facility](Immi gration Phys Exam) OUTPATIENT [id number] possibl e sinus infecti on/er follow up SILVIO PLATT I 05/18 Released w/o Limitations [facility](Im migrati on Phys Exam) [facility](Orth opedics) OUTPATIENT [id number] walk in, ok per Neel Barnes n NEEL CHURCH 05/24 Released w/o Limitations [facility](Or thopedi cs) [facility](Hear ing Conservat ion [facility]) OUTPATIENT [id number] SANDY Johnston 05/18 Released w/o Limitations [facility](He aring Conserv ation SRP) [facility](Immi gration Phys Exam) OUTPATIENT [id number] sleep problem s PREM AVILA 05/25 Released w/o Limitations [facility](Im migrati on Phys Exam) [facility] OUTPATIENT [id number] TOBACCO /CESSAT ION RODRIGUE PAUL 05/26 Released w/o Limitations [facility]) [facility](Opto metry CT) OUTPATIENT [id number] ets LORETTA Bass 06/09 Released w/o Limitations [facility](Op tometry [facility]) [facility](Immi gration Phys Exam) OUTPATIENT [id number] f/u medicat ion PREM AVILA 06/14 Released w/o Limitations [facility](Im migrati on Phys Exam) [facility](Immi gration Phys Exam) OUTPATIENT [id number] phase II ets NOAH Olivas 06/23 Released w/o Limitations [facility](Im migrati on Phys Exam) [facility]([employer]) OUTPATIENT [id number] sleep BARRY AVILAIS 07/06 Released w/o Limitations [facility](Me [employer]) [facility](Opto metry [facility]) OUTPATIENT [id number] EYE EXAM ALLYS[place] GUILLORY Peterson 07/12 Released w/o Limitations [facility](Op tometry [facility]) [place] [facility] Outpatient Encounter [id number] 02/28 [place] [facility] [place] [facility] Outpatient Encounter [id number] [facility] [place] [facility]SEQ [id number] Diagnos is: ICD-10- CM 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<b r/> MARLON PEREYRA 03/20 KRISTOPHER Crisostomo [facility] [place] [facility] Outpatient Encounter [id number] WADE OSORIO 05/10 [place] [facility] [place] [facility] Out[place] Encounter [id number] 05/18 [place] [facility] [place] [facility] Outpatient Encounter [id number] 05/19 [place] [facility] [place] [facility] Outpatient Encounter [id number] 06/05 [place] [facility] [place] [facility] Out[place] Encounter [id number] 06/08 [place] [facility] OFFICE O/P EST HI 40-54 MIN [id number] Diagnos is: ICD-10- CM G89.29 Other chronic pain
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
MEDAL,LATOSHA GET D 06/14 [place] [facility] [place] [facility] OFF/OP EST JULY X REQ PHY/QHP [id number] Diagnos is: ICD-10- CM E66.9 Obesity , unspeci fied
STANWOOD,A MY D 06/15 [place] [facility] PRO PHONE CALL 11-20 MIN [id number] Diagnos is: ICD-10- CM R51.9 Headach e, unspeci fied
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
Neena CROWLEY 08/08 [place] [facility] [place] [facility] OFF/OP CNSLTJ NEW/EST MOD 40 [id number] Diagnos is: ICD-10- CM G43.809 Other migrain e, not intract able, without status migrain osus
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<b r/> WADE OSORIO CQUELINE N 08/16 [facility] MED NUTRITION INDIV SUBSEQ [id number] Diagnos is: ICD-10- CM 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<b r/> WADE OSORIO CQUELINE N 09/17 [facility] [place] [facility] Outpatient Encounter [id number] 10/18 [place] [facility] [place] [facility] Outpatient Encounter [id number] 10/31 [place] [facility] MED NUTRITION INDIV SUBSEQ [id number] Diagnos is: ICD-10- CM 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
JOSÉ MIGUEL GUERRA S 01/10 [facility] OFF/OP EST JULY X REQ PHY/QHP [id number] Diagnos is: ICD-10- CM M54.50 Low back pain, unspeci fied
ROBBIN RHODES 01/17 [facility] [place] [facility] Outpatient Encounter [id number] 01/25 [place] [facility] [place] [facility] [place] En[place] [id number] 02/13 [place] [facility] [facility] [place] [facility] Outpatient Encounter [id number] 02/26 [place] [facility] NUTRITION INDIV SUBSEQ [id number] Diagnos is: ICD-10- CM E66.01 Morbid (severe ) obesity due to excess calorie s
WADE OSORIO N 03/12 [facility] [place] [facility] Outpatient Encounter [id number] RA LUCIO JOSE A 03/22 [place] [facility] [place] [facility] Outpatient Encounter [id number] Diagnos is: ICD-10- CM J10.1 Flu due to oth ident influen za virus w oth resp manifes t
GILLES DIEGO RA 03/22 [place] [facility] [place] [facility] Outpatient Encounter [id number] 05/06 [place] [facility] MED NUTRITION INDIV SUBSEQ [id number] Diagnos is: ICD-10- CM E66.01 Morbid (severe ) obesity due to excess calorie s
WADE OSORIO 05/15 [facility] [place] [facility] Outpatient Encounter [id number] 05/20 [place] [facility] [place] [facility] Outpatient Encounter [id number] 06/24 [place] [facility] [place] [facility] Outpatient Encounter [id number] 07/10 [place] [facility] [place] [facility] Outpatient Encounter [id number] 07/11 [place] [facility] [place] [facility] Outpatient Encounter [id number] 07/24 [facility] [place] [facility] OFFICE O/P EST LOW 20 MIN [id number] Diagnos is: ICD-10- CM Z68.41 Body mass index [BMI] 40.0-44 .9, adult<b r/> CARRIE VILLALTA 08/13 [place] [facility] [place] [facility] Outpatient Encounter [id number] 08/25 [place] [facility] [place] [facility] Outpatient Encounter [id number] Austen GARCIA I 08/25 [facility] Procedures Combined list of: 1) Procedures from Department of Veterans Affairs facilities going back up to thelast 18 months, not all VA non-surgical procedures are included; 2) All procedures from the Department of Defense facilities. Procedure Procedure Type Code Date Perfomer Comments Sourc e FITTING OF SPECTACLES, EXCEPT FOR APHAKIA; MONOFOCAL 07/13/19 10 [facility] SCREENING TEST OF VISUAL ACUITY, QUANTITATIVE, BILATERAL 06/10/19 AUDIOMETRIC TESTING OF GROUPS 05/19/19 10 [facility] SKIN TEST; TUBERCULOSIS, INTRADERMAL 05/19/19 10 [facility] COLLECTION OF VENOUS BLOOD BY VENIPUNCTURE 05/19/19 10 [facility] SKIN TEST; TUBERCULOSIS, INTRADERMAL 06/02/19 [facility] COLLECTION OF VENOUS BLOOD BY VENIPUNCTURE 06/02/19 [facility] APPLICATION, CAST; ELBOW TO FINGER 04/26/19 09 [facility] APPLICATION OF SHORT ARM SPLINT (FOREARM TO HAND); STATIC 04/14/19 [facility] AUDIOMETRIC TESTING OF GROUPS 02/17/20 [facility] SCREENING TEST OF VISUAL ACUITY, QUANTITATIVE, BILATERAL 02/17/20 [facility] OPHTHALMOLOGICAL SERVICES: MEDICAL EXAMINATION AND EVALUATION WITH INITIATION OF DIAGNOSTIC AND TREATMENT PROGRAM; COMPREHENSIVE, NEW PATIENT, 1 OR MORE VISITS 02/12/20 08 [facility] NUTRITION CLASSES, NON-PHYSICIAN PROVIDER, PER SESSION 12/10/19 08 [facility] ALCOHOL AND/OR OTHER DRUG ABUSE SERVICES, NOT OTHERWISE SPECIFIED 12/03/19 08 [facility] SKIN TEST; TUBERCULOSIS, INTRADERMAL 11/18/19 08 [facility] SCREENING TEST OF VISUAL ACUITY, QUANTITATIVE, BILATERAL 11/18/19 08 [facility] PARING OR CUTTING OF BENIGN HYPERKERATOTIC LESION (EG, CORN OR CALLUS); 2 TO 4 LESIONS 11/13/19 08 [facility] INJECTION, ONDANSETRON HCL, PER 1 MG 10/20/19 08 [facility] INJECTION, METOCLOPRAMIDE HCL, UP TO 10 MG 10/18/19 08 [facility] FOOT INSERT, REMOVABLE, MOLDED TO PATIENT MODEL, PLASTAZOTE OR EQUAL, EACH 05/15/19 08 [facility] PARING OR CUTTING OF BENIGN HYPERKERATOTIC LESION (EG, CORN OR CALLUS); 2 TO 4 LESIONS 05/15/19 [facility] AUDIOMETRIC TESTING OF GROUPS 02/12/20 [facility] SKIN TEST; TUBERCULOSIS, INTRADERMAL 02/12/20 07 [facility] COLLECTION OF VENOUS BLOOD BY VENIPUNCTURE 02/12/20 07 [facility] UNLISTED VACCINE/TOXOID 12/07/19 06 [facility] SCREENING TEST OF VISUAL ACUITY, QUANTITATIVE, BILATERAL 12/07/19 06 [facility] MENTAL HEALTH ASSESSMENT, BY NON-PHYSICIAN 09/27/19 06 [facility] EAR PROTECTOR ATTENUATION MEASUREMENTS 03/09/19 06 [facility] COLLECTION OF VENOUS BLOOD BY VENIPUNCTURE 03/09/19 06 [facility] OPHTHALMOLOGICAL SERVICES: MEDICAL EXAMINATION AND EVALUATION WITH INITIATION OF DIAGNOSTIC AND TREATMENT PROGRAM; INTERMEDIATE, NEW PATIENT 10/13/19 05 [facility] Ophthalmological Prior Patient Start Comprehensive Care Ophthalmological Prior Patient Start Comprehensive Care [id number] 07/13/19 10 ALLYSON GUILLORY [facility] Determination Of Refractive State Determination Of Refractive State 78900 07/13/19 10 ALL[facility] GUILLORY Spectacles Services Fitting Monofocal Except For Aphakia Spectacles Services Fitting Monofocal Except For Aphakia 81441 07/13/19 10 [facility] GUI[facility] Screening Test Of Visual Acuity, Quantitative, Bilateral Screening Test Of Visual Acuity, Quantitative, Bilateral 99833 06/11/19 10 LORETTA MANUEL [facility] Audiometry Group Testing Audiometry Group Testing 74210 05/19/19 10 SANDY DIAZ [facility] Orthopedic Casting Short Arm Orthopedic Casting Short Arm 36070 04/27/19 09 SOTO COSMAS [facility] Splinting Short Arm Orthopedic Splinting Short Arm 84473 04/14/19 09 SOTO COSMAS M [facility] Audiometry Group Testing Audiometry Group Testing 23298 02/18/20 08 JESSIE SMITH [facility] Determination Of Refractive State Determination Of Refractive State 60216 02/13/20 08 ALLYSON GUILLORY Spectacles Services Fitting Monofocal Except For Aphakia Spectacles Services Fitting Monofocal Except For Aphakia 19067 02/13/20 08 ALLYS[facility] GUILLORY Ophthalmological New Patient Start Comprehensive Care Ophthalmological New Patient Start Comprehensive Care 75810 02/13/20 08 ALLYSON GUILLORY Medical Nutrition Therapy Group (2 or More Individuals) Each 30 Minutes Medical Nutrition Therapy Group (2 or More Individuals) Each 30 Minutes 18137 12/11/19 08 BOLA FIGUEROA [facility] Paring / Curettage Of Benign Hyperkeratotic Lesions, 2-4 Paring / Curettage Of Benign Hyperkeratotic Lesions, 2-4 93084 11/13/19 08 MARTHA BOOTHE [facility] Foot insert, removable, molded to patient model, Plastazote or equal, each 05/15/19 08 MADELIN SOTO [facility] Paring / Curettage Of Benign Hyperkeratotic Lesions, 2-4 Paring / Curettage Of Benign Hyperkeratotic Lesions, 2-4 75068 05/15/19 08 CHARITY GRAVES [facility] Audiometry Group Testing Audiometry Group Testing 35477 02/12/20 07 KJ LAYTON [facility] Social History Combined list of available smoking, tobacco, and other social history from Department of Defense and Veterans Affairs facilities. Social History Type Response Date Comment Sourc e Tobacco smoking status NHIS VA-TOBACCO QUIT 5 TO < 15 YRS 01/10/2023 [facility] History of tobacco use VA-TOBACCO FORMER USER 01/10/2023 [facility] History of tobacco use VA-TOBACCO FORMER USER 01/18/2022 [facility] History of tobacco use VA-TOBACCO USER S OME DAYS 06/17/2020 [facility] History of tobacco use VA-TOBACCO QUIT 1 TO < 5 YRS 03/13/2019 [facility] History of tobacco use VA-TOBACCO FORMER USER 02/04/2018 [facility] History of tobacco use FORMER TOBACCO USE <1Y 10/16/2016 [facility] History of tobacco use CURRENT TOBACCO USER 09/23/2015 [facility] History of tobacco use FORMER TOBACCO US E >1Y <7Y 05/12/2014 [facility] History of tobacco use CURRENT TOBACCO USER 02/01/2012 [facility] History of tobacco use CURRENT TOBACCO USER 12/29/2010 [facility] History of tobacco use CURRENT TOBACCO USER 01/10/2010 [facility] This section is an empty social history section. [facility]
--- OUTSIDE RECORDS SUMMARY | 2023-08-26 14:25 | XMS_ITS ---
NUTRITION/DIETETICS-INDIVIDUAL [facility] Encounter Summary Created on: August 26, 2023 CHARITY JUAREZ : 1985 Sex: Male Author Name [facility] Organization [facility] Address [address] [place] [address] Care Team Providers Care Civil Engineering Project Manager Name Role Phone LIS GUERRA Primary Care [...] er HSA Natio nal Mar 04, 2014 [id number] FAVOURITE ,CHARITY PATIENT [facility] ([id number] [facility]) PRESCRIPT ION MEDIC A RX Mar 04, 2022 1[facility] [id number] FAVOURITE ,CHARITY PATIENT [facility] ([facility]) PRESCRIPT ION MEDIC A RX Mar 04, 2021 1[facility] [id number] FAVOURITE ,CHARITY PATIENT [facility] Mar 04, 2021 [id number] FAVOURITE ,CHARITY PATIENT [facility] Mar 04, 2021 [id number] [phone] FAVOURITE ,CHARITY PATIENT [facility] PREFERRED PROVIDER ORGANIZAT ION (PPO) [facility] Mar 04, 2022 [id number] [phone] FAVOURITE ,CHARITY PATIENT MEDIMPACT RX PRESCRIPT ION HP RX [facility] Mar 04, 2014 [id number] 1 CHARITY JUAREZ PATIENT Selected Encounter This section includes the information on record at MD for the Encounter. Date/Time Encounter Type Encounter Description Reason Pro vider Source Jun 25, 2023 03:00 PM Outpatient Encounter NUTRITION/DIETETICS-I NDIVIDUAL IHE Encounter Template Text not used by MD Plan of Treatment: Future Appointments (+ 6 months) and Future Tests (+/- 45 days) The Plan of Treatment section includes future care activities for the patient from all MD treatmentfacilities. This section includes future appointments and future orders which are active, pending or scheduled. Future Appointments This section includes appointments that were scheduled to occur 6 months from the date of the Encounter, up to a maximum of 20 appointments. The data comes from all MD treatment facilities. Appointment Date/Time Appointment Type Appointme nt Facility Name Aug 14, 2023 03:00 PM AMBULATORY - MEDICINE [facility] Social History: Smoking Status (Most current) and Tobacco Use (All prior to encounter date) This section includes the most current, and the historical, smoking and tobacco- related health factors from the MD facility where the Encounter took place. Current Smoking Status This section includes the most current smoking, or tobacco-related health factor, from the MD facility where the Encounter took place. Date/Time Current Smoking Status Comment Yossi reid Feb 01, 2012 09:57 AM CURRENT TOBACCO USER [facility] Tobacco Use History This section includes a history of the smoking, or tobacco-related health factors, that were collected on or before the date of the Encounter. The data comes from the MD facility where the Encounter took place. Date/Time Smoking Status/Tobacco Use Comment Virgil acluis antonio Dec 29, 2010 01:07 PM CURRENT TOBACCO USER [facility] Encounter Notes: All associated encounter notes This section contains the clinical notes associated to the Encounter. Date/Time Encounter Note(s) Provider Source Jun 25, 2023 03:12 PM NO SHOW NOTE: LOCAL TITLE: NO SHOW/CANCELLATION CLINIC NOTE STANDARD TITLE: NO SHOW NOTE DATE OF NOTE: JUN 25, 2023@15:12 ENTRY DATE: JUN 25, 2023@15:12:48 AUTHOR: NAREN OSORIO EXP COSIGNER: URGENCY: STATUS: COMPLETED SUBJECT: nutrition [place] not seen for scheduled appointment due to: [place] cancelled [place] [facility] requested to cancel nutrition appt today; still at work. Appointment Rescheduled: Yes Wants to r/s to 07/10 @ 3:00 pm via phone (pls block F2F). Please review patient chart and medications for renewal needs (if appropriate). [facility] please cancel todays appt and r/s to above. Thank you! /todd/ NAREN OSORIO MS, RD, LD Clinical Dietitian Signed: 06/25/2023 15:14 Receipt Acknowledged By: 06/25/2023 15:21 /todd/ TIANNA CISSE [facility] NAREN OSORIO [facility]
--- OUTSIDE RECORDS SUMMARY | 2023-08-26 14:25 | XMS_ITS | Encounter Summary ---
Author Name Department of [facility] Organization [facility] Address [address] [place] [address] Care Team Providers Care Clinical Psychologist Private Practice Name Role Phone LIS GUERRA Primary Care [...] er HSA Natio nal Mar 04, 2014 [id number] FAVOURITE ,CHARITY PATIENT [facility] ([id number] [facility]) PRESCRIPT ION MEDIC A RX Mar 04, 2022 1[facility] [id number] FAVOURITE ,CHARITY PATIENT [facility] ([facility]) PRESCRIPT ION MEDIC A RX Mar 04, 2021 1[facility] [id number] [phone] FAVOURITE ,CHARITY PATIENT [facility] Mar 04, 2021 [id number] [phone] FAVOURITE ,CHARITY PATIENT [facility] Mar 04, 2021 [id number] FAVOURITE ,CHARITY PATIENT [facility] PREFERRED PROVIDER ORGANIZAT ION (PPO) [facility] Mar 04, 2022 [id number] [phone] FAVOURITE ,CHARITY PATIENT MEDIMPACT RX PRESCRIPT ION HP RX [facility] Mar 04, 2014 [id number] [phone] CHARITY JUAREZ PATIENT Selected Encounter This section includes the information on record at NH for the Encounter. Date/Time Encounter Type Encounter Description Reason Provider Source Aug 14, 2023 03:00 PM OFFICE O/P EST LOW 20 MIN WEIGHT MGMT & MOVE! PROG - IND ICD-10-CM Z68.41 Body mass index [BMI] 40.0-44.9, adult HELEN VILLALTA Encounter Template Text not used by NH Assessments - Encounter Diagnoses This section includes the primary and secondary diagnoses documented for the Encounter. Date/Time Primary/Secondary Diagnosis Diagnosis Name Provider Source Aug 20, 2023 11:31 AM PRIMARY Body mass index [BMI] 40.0-44.9, adult [facility] Aug 20, 2023 11:31 AM SECONDARY Essential (primary) hypertension [facility] Aug 20, 2023 11:31 AM SECONDARY Obstructive sleep apnea (adult) (pediatric) [facility] Vital Signs: All taken on the encounter date This section contains inpatient and outpatient Vital Signs collected on the date of the Encounter. Date/Time Temperature Pulse Blood Pressure Respiratory Rate SP02 Pain Height Weight Body Mass Index Source Aug 14, 2023 02:58 PM 158/115 [facility] Aug 14, 2023 02:53 PM 91 161/103 [facility] Aug 14, 2023 02:52 PM 336.5 41 [facility] Social History: Smoking Status (Most current) and Tobacco Use (All prior to encounter date) This section includes the most current, and the historical, smoking and tobacco- related health factors from the NH facility where the Encounter took place. Current Smoking Status This section includes the most current smoking, or tobacco-related health factor, from the NH facility where the Encounter took place. Date/Time Current Smoking Status Comment Yossi reid Feb 01, 2012 09:57 AM CURRENT TOBACCO USER [facility] Tobacco Use History This section includes a history of the smoking, or tobacco-related health factors, that were collected on or before the date of the Encounter. The data comes from the NH facility where the Encounter took place. Date/Time Smoking Status/Tobacco Use Comment Virgil palmer Dec 29, 2010 01:07 PM CURRENT TOBACCO USER [facility] Encounter Notes: All associated encounter notes This section contains the clinical notes associated to the Encounter. Date/Time Encounter Note(s) Provider Source Aug 14, 2023 03:25 PM ENDOCRINOLOGY ATTE NDING NOTE: LOCAL TITLE: METABOLIC CLINIC NOTE STANDARD TITLE: ENDOCRINOLOGY ATTENDING NOTE DATE OF NOTE: AUG 14, 2023@15:25 ENTRY DATE: AUG 14, 2023@15:26:10 AUTHOR: CARRIE VILLALTA COSIGNER: URGENCY: STATUS: COMPLETED [facility] Note 38 year old MALE for morbid obesity associated with ADD, PTSD and SHERLEY BMI = 41.0 today with weight 336.5 lb [152.63 kg] (08/14/2023 14:52) and height 76 in [193.0 cm] (01/10/2023 13:51) Weight change since last seen 12/05/2022 is up 16. Patient is working on the following goal about food: Limiting calories to less than 2000/day. Was off medication and program for a few months due to depression and busyness, recently restarted. 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 Blood Pressure: 158/115 (08/14/2023 14:58) Active Outpatient Medications (including Supplies): HYDROCHLOROTHIAZIDE 25MG TAB TAKE ONE TABLET BY MOUTH ACTIVE EVERY MORNING FOR HIGH BLOOD PRESSURE LOSARTAN 50MG TAB TAKE ONE TABLET BY MOUTH EVERY DAY FOR ACTIVE BLOOD PRESSURE OMEPRAZOLE 20MG EC CAP TAKE ONE CAPSULE BY MOUTH EVERY DAY ACTIVE FOR HEARTBURN ON AN EMPTY STOMACH, AT LEAST 30 MINUTES PRIOR TO A MEAL FOR GERD PHENTERMINE 15/TOPIRAMATE 92MG SA CAP TAKE 1 CAPSULE BY ACTIVE MOUTH EVERY DAY FOR WEIGHT LOSS POLYETHYLENE GLYCOL 3350 ORAL PWDR TAKE 17 GRAMS BY MOUTH ACTIVE EVERY DAY IRRITABLE BOWEL (MIX WITH 4 TO 6 OUNCES OF LIQUID AND DRINK) LAB TESTS SELECTED Collection DT Specimen Test Name Result Units Ref Range 01/10/2023 15:11 BLOOD !! HEMOGLOBIN A1C 5.1 % 4.0 - 6.0 Assessment and Plan: Encouraged med compliance and problem solved on that with him. Refocus food plan on no snacks or liquid calories, reduced starches and cheese. Patient is taking Qsymia to assist with weight control. There is mutual understanding of the goals and risks of this therapy. Will continue the medication in pursuit of improved medical status as influenced by body weight. Counseling for above >50% of 25 minutes. /todd/ CARRIE VILLALTA M.D. Chief, Endocrinology and Metabolism Signed: 08/20/2023 11:31 CARRIE VILLALTA [facility] Aug 14, 2023 02:54 PM INTERNAL MEDICINE OUTPATIENT NOTE: LOCAL TITLE: MEDICINE CLINIC NURSING NOTE STANDARD TITLE: INTERNAL MEDICINE OUTPATIENT NOTE DATE OF NOTE: AUG 14, 2023@14:54 ENTRY DATE: AUG 14, 2023@14:54:47 AUTHOR: ADRIANNE FREDERICK EXP COSIGNER: URGENCY: STATUS: COMPLETED TYPE OF VISIT: Appointment Check In Type of appointment: In-person appointment REASON FOR VISIT: move mass clinic visit ALLERGIES: LISINOPRIL (Jun 17, 2014) ZOLPIDEM (Nov 14, 2020) VITAL SIGNS: Blood Pressure: 161/103 (08/14/2023 14:53) blood pressure recheck: 158/115. no symptoms present. [place] states that he did take his blood pressure medication this morning. blood pressure recheck ordered for after visit. Pulse: 91 (08/14/2023 14:53) Weight: 336.5 lb [152.63 kg] (08/14/2023 14:52) Height: 76 in [193.0 cm] (01/10/2023 13:51) BMI: 41.0 PAIN SCREEN: Patient is not having significant pain that they wish to discuss with their provider today. /todd/ ADRIANNE FREDERICK CONFERENCE ASSISTANT Signed: 08/14/2023 14:59 ADRIANNE FREDERICK [facility]
--- OUTSIDE RECORDS SUMMARY | 2023-08-26 14:25 | XMS_ITS | Encounter Summary ---
Author Name Department [facility] Organization [facility] Address [address] [place] [address] Care Team Providers Care Flame Brazing Machine Operator Name Role Phone LIS GUERRA Primary Care [...] er HSA Natio nal Mar 04, 2014 [id number] [phone] FAVOURITE ,CHARITY PATIENT MEDCO ([id number] [facility] S[facility]) PRESCRIPT ION MEDIC A RX Mar 04, 2022 1[facility]ICA [id number] FAVOURITE ,CHARITY PATIENT MEDCO ([facility] SCRIPTS) PRESCRIPT ION MEDIC A RX Mar 04, 2021 1[facility]ICA [id number] FAVOURITE ,CHARITY PATIENT [facility] Mar 04, 2021 [id number] FAVOURITE ,CHARITY PATIENT [facility] Mar 04, 2021 [id number] FAVOURITE ,CHARITY PATIENT [facility] PREFERRED PROVIDER ORGANIZAT ION (PPO) [facility] Mar 04, 2022 [id number] FAVOURITE ,CHARITY PATIENT MEDIMPACT RX PRESCRIPT ION HP RX [facility] Mar 04, 2014 [id number] CHARITY JUAREZ PATIENT Selected Encounter This section includes the information on record at [facility] for the Encounter. Date/Time Encounter Type Encounter Description Reason Pro vider Source IHE Encounter Template Text not used by VA
--- OUTSIDE RECORDS SUMMARY | 2023-08-26 14:25 | XMS_ITS | Encounter Summary ---
Author Name Department of [facility] Organization [facility] Address [address] [place] [address] Care Team Providers Care Increment Manager Name Role Phone LIS GUERRA Primary [...] er HSA Natio nal Mar 04, 2014 [id number] FAVOURITE ,CHARITY PATIENT MEDCO ([id number] EXPRESS SCRIPTS) PRESCRIPT ION MEDIC A RX Mar 04, 2022 1MEDICA [id number] FAVOURITE ,CHARITY PATIENT MEDCO (EXPRESS SCRIPTS) PRESCRIPT ION MEDIC A RX Mar 04, 2021 1MEDICA [id number] FAVOURITE ,CHARITY PATIENT [facility] PO[facility] Mar 04, 2021 [id number] FAVOURITE ,CHARITY PATIENT [facility] Mar 04, 2021 [id number] FAVOURITE ,CHARITY PATIENT [facility] PREFERRED PROVIDER ORGANIZAT ION (PPO) [facility] Mar 04, 2022 [id number] [phone] FAVOURITE ,CHARITY PATIENT MEDIMPACT RX PRESCRIPT ION HP RX HSA Mar 04, 2014 [id number] CHARITY JUAREZ PATIENT Selected Encounter This section includes the information on record at [place] for the Encounter. Date/Time Encounter Type Encounter Description Reason Pro vider Source Aug 26, 2023 09:50 AM Outpatient Encounter PRIMARY CARE/MEDICINE IHE Encounter Template Text not used by ME Social History: Smoking Status (Most current) and Tobacco Use (All prior to encounter date) This section includes the most current, and the historical, smoking and tobacco- related health factors from the [place] facility where the Encounter took place. Current Smoking Status This section includes the most current smoking, or tobacco-related health factor, from the [place] facility where the Encounter took place. Date/Time Current Smoking Status Comment Yossi itshayne Feb 01, 2012 09:57 AM CURRENT TOBACCO USER [facility] Tobacco Use History This section includes a history of the smoking, or tobacco-related health factors, that were collected on or before the date of the Encounter. The data comes from the [place] facility where the Encounter took place. Date/Time Smoking Status/Tobacco Use Comment F acluis antonio Dec 29, 2010 01:07 PM CURRENT TOBACCO USER [facility] Encounter Notes: All associated encounter notes This section contains the clinical notes associated to the Encounter. Date/Time Encounter Note(s) Provider Source Aug 26, 2023 09:50 AM REPORT OF CONTACT: LOCAL TITLE: PATIENT CONTACT NOTE STANDARD TITLE: REPORT OF CONTACT DATE OF NOTE: AUG 26, 2023@09:50 ENTRY DATE: AUG 26, 2023@09:50:24 AUTHOR: NIYAH GARRISON COSIGNER: URGENCY: STATUS: COMPLETED PATIENT CONTACT NOTE Has ADDENDA Patient contact Name of : CHARITY JUAREZ Name/Relationship of Contact if other than : Date & Time of Contact: Aug@09:50 Type of Contact: Telephone Reason for Contact: left a message he is having left are numbness and thinks his pinky finger is causing some buzziness. Please call him at /todd/ NIYAH CANNON Signed: 08/26/2023 10:06 Receipt Acknowledged By: 08/26/2023 14:05 /todd/ NAN RHODES REGISTERED NURSE 08/26/2023 ADDENDUM STATUS: COMPLETED RN notes vet spoke to [facility] roller engraver, instructed to go to ED. /todd/ NAN RHODES REGISTERED NURSE Signed: 08/26/2023 14:05 NIYAH GARRISON CBOC
--- OUTSIDE RECORDS SUMMARY | 2023-08-26 14:25 | XMS_ITS ---
NUTRITION/DIETETICS-INDIVIDUAL [facility] Encounter Summary Created on: August 26, 2023 CHARITY JUAREZ : 1985 Sex: Male Author Name Department of [facility] Organization [facility] Address [address] [place] [address] Care Team Providers Care Threading Machine Tender Name Role Phone LIS GUERRA Primary Care [...] er HSA Natio nal Mar 04, 2014 [id number] FAVOURITE ,CHARITY PATIENT MEDCO ([id number] EXPRESS SCRIPTS) PRESCRIPT ION MEDIC A RX Mar 04, 2022 1MEDICA [id number] FAVOURITE ,CHARITY PATIENT MEDCO (EXPRESS SCRIPTS) PRESCRIPT ION MEDIC A RX Mar 04, 2021 1MEDICA [id number] FAVOURITE ,CHARITY PATIENT MED[facility] Mar 04, 2021 [id number] FAVOURITE ,CHARITY PATIENT [facility] Mar 04, 2021 [id number] [phone] FAVOURITE ,CHARITY PATIENT [facility] PREFERRED PROVIDER ORGANIZAT ION (PPO) [facility] Mar 04, 2022 [id number] FAVOURITE ,CHARITY PATIENT MEDIMPACT RX PRESCRIPT ION HP RX HSA Mar 04, 2014 [id number] [phone] CHARITY JUAREZ PATIENT Selected Encounter This section includes the information on record at [place] for the Encounter. Date/Time Encounter Type Encounter Description Reason Pro vider Source July 25, 2023 05:05 PM Outpatient Encounter NUTRITION/DIETETICS-I NDIVIDUAL IHE Encounter Template Text not used by DC Plan of Treatment: Future Appointments (+ 6 months) and Future Tests (+/- 45 days) The Plan of Treatment section includes future care activities for the patient from all [place] treatmentfacilities. This section includes future appointments and future orders which are active, pending or scheduled. Future Appointments This section includes appointments that were scheduled to occur 6 months from the date of the Encounter, up to a maximum of 20 appointments. The data comes from all [place] treatment facilities. Appointment Date/Time Appointment Type Appointme nt Facility Name Aug 14, 2023 03:00 PM AMBULATORY - MEDICINE [facility] Social History: Smoking Status (Most current) and Tobacco Use (All prior to encounter date) This section includes the most current, and the historical, smoking and tobacco- related health factors from the [place] facility where the Encounter took place. Current Smoking Status This section includes the most current smoking, or tobacco-related health factor, from the [place] facility where the Encounter took place. Date/Time Current Smoking Status Comment Yossi reid Feb 01, 2012 09:57 AM CURRENT TOBACCO USER [facility] Tobacco Use History This section includes a history of the smoking, or tobacco-related health factors, that were collected on or before the date of the Encounter. The data comes from the [place] facility where the Encounter took place. Date/Time Smoking Status/Tobacco Use Comment Virgil palmer Dec 29, 2010 01:07 PM CURRENT TOBACCO USER [facility]
--- OUTSIDE RECORDS SUMMARY | 2023-08-26 14:25 | XMS_ITS ---
NUTRITION/DIETETICS-INDIVIDUAL [facility] Encounter Summary Created on: August 26, 2023 CHARITY JUAREZ : 1985 Sex: Male Author Name Department of [facility] Organization [facility] of [facility] Address [address] [place] [address] Care Team Providers Care Digital Imaging Technician Name Role Phone LIS GUERRA Primary Care [...] er HSA Natio nal Mar 04, 2014 [id number] FAVOURITE ,CHARITY PATIENT MEDCO ([id number] EXPRESS SCRIPTS) PRESCRIPT ION MEDIC A RX Mar 04, 2022 1MEDICA [id number] FAVOURITE ,CHARITY PATIENT MEDCO (EXPRESS SCRIPTS) PRESCRIPT ION MEDIC A RX Mar 04, 2021 1MEDICA [id number] FAVOURITE ,CHARITY PATIENT MEDICA [facility] Mar 04, 2021 [id number] FAVOURITE ,CHARITY PATIENT [facility]ICA [facility] Mar 04, 2021 [id number] FAVOURITE ,CHARITY PATIENT [facility]ICA[facility] PREFERRED PROVIDER ORGANIZAT ION (PPO) [facility] Mar 04, 2022 [id number] [phone] FAVOURITE ,CHARITY PATIENT MEDIMPACT RX PRESCRIPT ION HP RX HSA Mar 04, 2014 [id number] [phone] LARRY CHARITY PATIENT Selected Encounter This section includes the information on record at [place] for the Encounter. Date/Time Encounter Type Encounter Description Reason Pro vider Source July 12, 2023 08:59 AM Outpatient Encounter NUTRITION/DIETETICS-I NDIVIDUAL IHE Encounter Template Text not used by [place] Plan of Treatment: Future Appointments (+ 6 months) and Future Tests (+/- 45 days) The Plan of Treatment section includes future care activities for the patient from all [place] treatmentfacilities. This section includes future appointments and future orders which are active, pending or scheduled. Future Appointments This section includes appointments that were scheduled to occur 6 months from the date of the Encounter, up to a maximum of 20 appointments. The data comes from all [place] treatment facilities. Appointment Date/Time Appointment Type Appointme nt Facility Name Aug 14, 2023 03:00 PM AMBULATORY - MEDICINE [facility] Social History: Smoking Status (Most current) and Tobacco Use (All prior to encounter date) This section includes the most current, and the historical, smoking and tobacco- related health factors from the [place] facility where the Encounter took place. Current Smoking Status This section includes the most current smoking, or tobacco-related health factor, from the [place] facility where the Encounter took place. Date/Time Current Smoking Status Comment Yossi reid Feb 01, 2012 09:57 AM CURRENT TOBACCO USER [facility] Tobacco Use History This section includes a history of the smoking, or tobacco-related health factors, that were collected on or before the date of the Encounter. The data comes from the [place] facility where the Encounter took place. Date/Time Smoking Status/Tobacco Use Comment F acluis antonio Dec 29, 2010 01:07 PM CURRENT TOBACCO USER [facility] Encounter Notes: All associated encounter notes This section contains the clinical notes associated to the Encounter. Date/Time Encounter Note(s) Provider Source July 12, 2023 08:59 AM REPORT OF CONTACT: LOCAL TITLE: APPOINTMENT SCHEDULING NOTE STANDARD TITLE: REPORT OF CONTACT DATE OF NOTE: JULY 12, 2023@08:59 ENTRY DATE: JULY 12, 2023@08:59:54 AUTHOR: TIANNA JANSEN COSIGNER: URGENCY: STATUS: COMPLETED Attempted to schedule Return to clinic (RTC) Contact attempt made to [place] 1st attempt Telephone 2nd attempt Letter - Sent letter by regular [place] mail to address on file: CHARITY JUAREZ [address], [place] [address] Disposition order request after July [place] wants to call back to schedule If calls back, schedule appt for: f/u with dietitian for weight loss /es/ [facility] Signed: 07/12/2023 09:00 TIANNA JANSEN [facility]
--- OUTSIDE RECORDS SUMMARY | 2023-08-26 14:25 | XMS_ITS | Encounter Summary ---
Author Name Department of [facility] Organization Department of [facility] Address [address] [place] [address] Care Team Providers Care Ginning Operator Name Role Phone LIS GUERRA Primary [...] er HSA Natio nal Mar 04, 2014 [id number] FAVOURITE ,CHARITY PATIENT MEDCO ([id number] EXPRESS SCRIPTS) PRESCRIPT ION MEDIC A RX Mar 04, 2022 1MEDICA [id number] FAVOURITE ,CHARITY PATIENT MEDCO (EXPRESS SCRIPTS) PRESCRIPT ION MEDIC A RX Mar 04, 2021 1MEDICA [id number] FAVOURITE ,CHARITY PATIENT MEDICA [facility] Mar 04, 2021 [id number] FAVOURITE ,CHARITY PATIENT [facility] Mar 04, 2021 [id number] FAVOURITE ,CHARITY PATIENT [facility] PREFERRED PROVIDER ORGANIZAT ION (PPO) [facility] Mar 04, 2022 [id number] [phone] FAVOURITE ,CHARITY PATIENT MEDIMPACT RX PRESCRIPT ION HP RX HSA Mar 04, 2014 [id number] CHARITY JUAREZ PATIENT Selected Encounter This section includes the information on record at CT for the Encounter. Date/Time Encounter Type Encounter Description Reason Pro vider Source July 11, 2023 03:16 PM Outpatient Encounter TELEPHONE/ANCILLARY IHE Encounter Template Text not used by CT Plan of Treatment: Future Appointments (+ 6 months) and Future Tests (+/- 45 days) The Plan of Treatment section includes future care activities for the patient from all [place] treatmentfacilities. This section includes future appointments and future orders which are active, pending or scheduled. Future Appointments This section includes appointments that were scheduled to occur 6 months from the date of the Encounter, up to a maximum of 20 appointments. The data comes from all [place] treatment facilities. Appointment Date/Time Appointment Type Appointme nt Facility Name Aug 14, 2023 03:00 PM AMBULATORY - MEDICINE [facility] Social History: Smoking Status (Most current) and Tobacco Use (All prior to encounter date) This section includes the most current, and the historical, smoking and tobacco- related health factors from the [place] facility where the Encounter took place. Current Smoking Status This section includes the most current smoking, or tobacco-related health factor, from the [place] facility where the Encounter took place. Date/Time Current Smoking Status Comment Yossi reid Feb 01, 2012 09:57 AM CURRENT TOBACCO USER [facility] Tobacco Use History This section includes a history of the smoking, or tobacco-related health factors, that were collected on or before the date of the Encounter. The data comes from the [place] facility where the Encounter took place. Date/Time Smoking Status/Tobacco Use Comment F acility Dec 29, 2010 01:07 PM CURRENT TOBACCO USER [facility] Encounter Notes: All associated encounter notes This section contains the clinical notes associated to the Encounter. Date/Time Encounter Note(s) Provider Source July 11, 2023 03:16 PM NO SHOW NOTE: LOCAL TITLE: NO SHOW/CANCELLATION CLINIC NOTE STANDARD TITLE: NO SHOW NOTE DATE OF NOTE: JULY 11, 2023@15:16 ENTRY DATE: JULY 11, 2023@15:16:28 AUTHOR: NAREN OSORIO EXP COSIGNER: URGENCY: STATUS: COMPLETED SUBJECT: nutrition not seen for scheduled appointment due to: [place] cancelled Called at appt time, needed to cancel r/t work conflict. States 3:00 pm may no longer work for appts. Unable to r/s while on phone. Encourged to call clinic to r/s as desired. Appointment Rescheduled: No MSA please change todays appointment to canceled by . Thank you Please review patient chart and medications for renewal needs (if appropriate). /todd/ NAREN OSORIO MS, RD, LD Clinical Dietitian Signed: 07/11/2023 15:18 Receipt Acknowledged By: 07/12/2023 08:59 /todd/ TIANNA CISSE [facility] NAREN OSORIO [facility]
--- OUTSIDE RECORDS SUMMARY | 2023-08-26 14:25 | XMS_ITS | Clinical Summary ---
Author Organization [facility] Address [place], [place] [address] Care Team Providers Care Manufacturing Supervisor 2Nd Shift Name Role Phone Pcp, No Primary Care Provider Unavailabl e Allergies No known active allergies Medications Medication Sig Dispensed Refills Start Date End Date Status losartan (COZAAR) 50 mg tablet Take 1 Tablet by mouth once daily. 01/10/2023 01/11/2024 Active hydroCHLOROthiazide (HCTZ) 25 mg tablet Take 25 mg by mouth once daily. 01/10/2023 01/11/2024 Active Encounters Date Type Department Care Team Description 06/07/2023 11:28 AM CDT - 06/07/2023 11:59 PM CDT Hospital Encounter [address] [address] Encounter for vasectomy from Last 3 Months Social History Tobacco Use Types Packs/Day Years Used Date Smoking Tobacco: Never Smokeless Tobacco: Never Tobacco Cessation:Counseling Given: Not Answered Alcohol Use Standard Drinks/Week Comments Yes 0 (1 standard drink = 0.6 oz pur e alcohol) Social Connections Answer Date Recorded Frequency of Communication with Friends and Fami ly Not on file 02/13/2023 Sex and Gender Information Value Date Recorded Sex Assigned at Not on file Gender Identity Not on file Sexual Orientation Not on file Obstetrics History Last Filed Vital Signs Vital Sign Reading Time Taken Comments Blood Pressure 122/78 02/13/2023 4:08 PM LEGAL CONTRACTS SPECIALIST Pulse 100 02/13/2023 4:08 PM LEGAL CONTRACTS SPECIALIST Temperature - - Respiratory Rate - - Oxygen Saturation - - Inhaled Oxygen Concentration - - Weight 147.4 kg (325 lb) 02/13/2023 4:08 PM LEGAL CONTRACTS SPECIALIST Height 193 cm (6' 4) 02/13/2023 4:08 PM LEGAL CONTRACTS SPECIALIST Body Mass Index 39.56 02/13/2023 4:08 PM LEGAL CONTRACTS SPECIALIST Plan of Treatment Health Maintenance Due Date Last Done Comments Tdap 1994 Depression screening for age 12+ 1995 HIV for age 15-65 1998 Hepatitis C screening for ag e 18-79 2001 Tetanus booster 2003 Lipids for age 35-44 2018 COVID-19 vaccine series ( season) 2022 03/14/2021, 07/14/2020, 06/02/2020 Influenza for age 9-49 11/03/2023 BMI (ht and wt on same day) for age 18+ 02/14/2024 02/13/2023 Pneumococcal series for age 6-64 Aged Out No longer eligible b ased on patient's age to complete this topic Procedures Procedure Name Priority Date/Time Associated Diagnosis Comments POST VAS CHECK IN HOUSE ONLY [place] Today 06/07/2023 11:00 AM CDT Encounter for vasectomy from Last 3 Months Results * (ABNORMAL) POST VAS CHECK IN HOUSE ONLY NC (06/07/2023 11:00 AM CDT) VOLUME,INITIAL 2.0 >1.5 mL 06/07/2023 11:[address] [facility] NON-SPERM CELLS Present(A) Absent 11:[address] [facility] Comment:This sample revealed an elevation of non-sperm cells which could indicate inflammation or other possible relevant conditions depending upon the patient history and/or other clinical findings. SPERM Present(A) Absent 06/07/2023 11:[address] [facility] MOTILITY Absent Absent 06/07/2023 11:[address] [facility] SAMPLE SUMMARY This post-vasecto my semen analysis revealed the presence of non motile sperm. 06/07/2023 11:[address] [facility] Comment:According to the laura delines of the [employer] [employer], these data indicate that further analysis may be warranted if deemed appropriate by your physician. Semen SEMINAL FLUID SPECIMEN / Unknown Non-Blood / Unknown 06/07/2023 11:00 AM CDT 06/07/2023 11:30 AM CDT [facility] - 06/07/2023 11:41 AM CDT This analysis was performed according to AUA guidelines. Centrifugation was not performed as a concentrating technique. Von Dyson MD LABORATORY [facility] [address] [place] [address] from Last 3 Months Care Teams Manufacturing Supervisor 2Nd Shift Relationship Specialty Start Date End Date Pcp, No . PCP - General 02/13/23
--- OUTSIDE RECORDS SUMMARY | 2023-08-26 14:25 | XMS_ITS | Encounter Summary ---
Author Name Department [facility] Organization Department of [facility] Address [address] [place] [address] Care Team Providers Care Cleaner Industrial Name Role Phone LIS GUERRA Primary Care [...] er HSA Natio nal Mar 04, 2014 [id number] FAVOURITE ,CHARITY PATIENT MEDCO ([id number] [facility] SCR[facility]) PRESCRIPT ION MEDIC A RX Mar 04, 2022 1MEDICA [id number] FAVOURITE ,CHARITY PATIENT MEDCO (EXPRESS SCRIPTS) PRESCRIPT ION MEDIC A RX Mar 04, 2021 1MEDICA [id number] FAVOURITE ,CHARITY PATIENT [facility] PO[facility] Mar 04, 2021 [id number] [phone] FAVOURITE ,CHARITY PATIENT [facility] Mar 04, 2021 [id number] [phone] FAVOURITE ,CHARITY PATIENT [facility] PREFERRED PROVIDER ORGANIZAT ION (PPO) [facility] Mar 04, 2022 [id number] [phone] FAVOURITE ,CHARITY PATIENT MEDIMPACT RX PRESCRIPT ION HP RX HSA Mar 04, 2014 [id number] [phone] CHARITY JUAREZ PATIENT Selected Encounter This section includes the information on record at [facility] for the Encounter. Date/Time Encounter Type Encounter Description Reason Pro vider Source IHE Encounter Template Text not used by [facility]
--- OUTSIDE RECORDS SUMMARY | 2023-08-26 14:25 | XMS_ITS | Encounter Summary ---
Author Name [facility] Organization [facility] Address [address] [place] [id number] Care Team Providers Care Smokehouse Operator Name Role Phone LIS GUERRA Primary [...] er [facility]SA Natio nal Mar 04, 2014 [id number] FAVOURITE ,CHARITY PATIENT [facility] ([id number] [facility]) PRESCRIPT ION MEDIC A RX Mar 04, 2022 1MEDICA [id number] [phone] FAVOURITE ,CHARITY PATIENT [facility] ([facility]) PRESCRIPT ION MEDIC A RX Mar 04, 2021 1MEDICA [id number] [phone] FAVOURITE ,CHARITY PATIENT MEDICA POINT OF SERVICE [facility] [facility] Mar 04, 2021 [id number] [phone] FAVOURITE ,CHARITY PATIENT [facility]ICA [facility] [facility] Mar 04, 2021 [id number] FAVOURITE ,CHARITY PATIENT [facility] PREFERRED PROVIDER ORGANIZAT ION (PPO) [place] [facility] F Mar 04, 2022 [id number] [phone] FAVOURITE ,CHARITY PATIENT MEDIMPA[facility] RX PRESCRIPT ION HP RX [facility]SA Mar 04, 2014 [id number] CHARITY JUAREZ PATIENT Selected Encounter This section includes the information on record at [facility] for the Encounter. Date/Time Encounter Type Encounter Description Reason Provider Source Aug 26, 2023 11:16 AM Outpatient Encounter TELEPHONE TRIAGE NNEKA GARCIA Encounter Template Text not used by ME [...] took place. Date/Time Current Smoking Status Comment Facil ity Feb 01, 2012 09:57 AM CURRENT TOBACCO [...] Encounter Note(s) Provider Source Aug 26, 2023 11:16 AM RN PROGRESS NOTE: LOCAL TITLE: CCC: CLINICAL TRIAGE STANDARD TITLE: RN PROGRESS NOTE DATE OF NOTE: AUG 26, 2023@11:16:52 ENTRY DATE: AUG 26, 2023@11:16:52 AUTHOR: DEZ GARCIA I EXP COSIGNER: URGENCY: STATUS: COMPLETED Patient Demographics Patient Name: CHARITY JUAREZ Patient Primary Address: [address] [place] [address] Patient Primary Phone: [phone] Patient : 1985 Patient Age: 38 Caller/Recipient Relation to Patient: Self Triage Summary Conducted triage/discussed symptoms Utilized the Triage Tool: Yes Chief Complaint: Arm Numbness (one arm) System WHEN: Now Nurse's Recommendation / WHEN: Now System WHERE: Emergency department Nurse's Recommendation / WHERE: ED Other WHEN/WHERE modifier reason: Distance from Hospital Patient Disposition Patient/Caregiver agrees to plan of care: Yes Patient WHERE: ED Other Patient WHEN: Now Nursing Plan and Disposition Referred patient to higher level of care Instructed to go to Emergency Room (ER) Advised of Financial Disclaimer: Patient advised that recommendation for care provided during the call does not constitute an approval or authorization for payment by the [facility] or its staff. Patient advised to report a community ED visit to the [facility] Office of Community Care at within 72 hours. Nurse Summary Nurse Summary: PATIENT CONCERN/DURATION/ONSET: [place] states that he has been having left 5th digit and left arm numbness to elbow x1 day that started when he woke up at 1100. He reports that he has been able to move arm and hand without difficulty but started having tingling to left face that just started prior to call. Denies recent shoulder/elbow pain, recent injury/fall, vision changes, dizziness, or gait changes. WHAT HAS PATIENT TRIED TO TREAT THE SYMPTOMS: No home care- symptoms did not resolve on own with rest HISTORY/PREVIOUS TREATMENT: hyperlipidemia, osteoarthritis, fracture forearm (2010), HTN (per ) WHAT IS PATIENT GOAL FOR THE CALL: advice for care Was Care Now considered (TELE or VVC)? 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 Location of nearest ED provided to . [facility] ED notification number ([phone]) provided to with instructions to call within 72 hours of discharge. agreeable to plan of care. This note was created by a [address] cost specialist. Please do not alert this nurse by adding as a signer for future communications. Alerts are not monitored by this user, please reach out to [facility] instead if indicated. Clinical Contact Center Codes Clinic/Location: V23 [facility] PHONE CCC RN [facility] Triage Complete Triage Date: 08/26/2023, 11:11 AM Triage Note: Phone Triage 26 Aug 2023 16:07:04 +0000 [facility] Demographics 38 y/o Male Results CC: Arm Numbness (one arm) Software suggested: Now Software suggested follow-up location: Emergency department Values and Measures Duration of CC: 1 Days Positive Responses HPI: numbness in one arm or hand, sudden onset HPI: symptoms duration longer than 24 hours PMH: hypertension Negative Responses Denies: HPI: neck injury, within past 48 hours Denies: PMH: diabetes Denies: PMH: heart disease Denies: PMH: stroke or TIA /es/ DEZ GARCIA RN, V[facility] Signed: 08/26/2023 11:16 DEZ GARCIA I [facility]
== END 2023-08-26 17:17 | disposition left against medical advice (07) ==
PROVIDERS: Emergency Provider Family Medicine
DX: R20.0 Anesthesia of skin (principal); Z53.29 Procedure and treatment not carried out because of patient's decision for other reasons
CPT/HCPCS: 70450; 99284